=== PATIENT | female | born 1995 | race African-American/Black ===

== ENCOUNTER 2024-12-18 05:38 | Emergency (ER) | payer OTHER, SELFPAY ==
[2024-12-18 05:47] VITALS: BP 167/90; PULSE 101; RESP 16; TEMP 36.6; O2SAT 100
[2024-12-18] MEDS: HYDROcodone/acetaminophen (*CRX) 7.5-325 MG TABLET 1 TAB PO (05:59)
--- NOTE | 2024-12-18 06:01 | ED_ITS ---
HPI - Extremity Problem General Chief complaint: Extremity Problem,Nontraumatic Stated complaint: Intense pain down left leg Time Seen by Provider: 12/18/24 05:48 History of Present Illness HPI Narrative: Patient is a 29-year-old female who presents to the emergency department this evening complaining of sciatic like pain shooting down her left leg. Patient states the pain starts in her left SI joint and shoots down her leg. States that she has tried taking Tylenol at home for the pain with no relief. 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 Admits sciatica does run in the family. Denies any recent falls, and denies any recent trauma. Denies any focal weakness, numbness and tingling. No additional symptoms or concerns at this time. Related Data Allergies Allergy/AdvReac Type Severity Reaction Status Date / Time Penicillins Allergy Mild Unknown Verified 12/18/24 05:41 Review of Systems Review of Systems: All systems are reviewed and are negative unless stated otherwise in the HPI. Exam Narrative: General: Alert, awake, afebrile, in no acute distress. HEENT: PERRL, no rhinorrhea, no post nasal drip, oropharynx clear. Neck: Trachea midline, no JVD, no lymphadenopathy. Cardiovascular: Regular rate and rhythm, no murmurs, rubs or gallops, no peripheral edema. Respiratory: Clear to auscultation bilaterally, no tachypnea, no wheezing, no rhonchi, no rubs, no respiratory distress. Abdomen: Soft, nontender, nondistended, no rebound, no guarding, no peritoneal signs. Musculoskeletal: No joint swelling or deformity, normal muscle tone, intact bilateral hip flexion and knee extension. Skin: No rashes or petechia, no signs of infection. Psychiatric: Alert and oriented, normal behavior and judgment for situation. Neurological: Alert and oriented to person, place, and time. Follows all commands. No focal deficits, speech is clear and fluent. Course Vital Signs Vital signs: Vital Signs Temperature 98 F 12/18/24 05:47 Pulse Rate 101 H 12/18/24 05:47 Respiratory Rate 16 12/18/24 05:47 Blood Pressure 167/90 H 12/18/24 05:47 Pulse Oximetry 100 01/21/25 05:47 Temperature 98 F 12/18/24 05:47 Pulse Rate 99 12/18/24 06:51 Respiratory Rate 18 12/18/24 06:51 Blood Pressure 155/84 H 12/18/24 06:51 Pulse Oximetry 100 12/18/24 06:51 MDM - Extremity (Nontraumatic) MDM Narrative Medical decision making narrative: The patient was evaluated by myself in the emergency department. History is obtained from patient who is an independent historian and physical exam was performed. External medical records were reviewed at this time. Patient was administered an oral Dierks 7.5-325 mg. Patient does not want any IM medications at this time. Differential diagnosis considerations include sciatica, musculoskeletal strain, herniated disc. Comorbidities impacting this visit include none. I have evaluated and discussed social determinants of health with the patient that could potentially impact subsequent diagnosis and treatment plans. On repeat assessment of the patient, reevaluation revealed that the patient is doing well and is in no acute distress. Patient symptoms have improved since she arrived to our emergency department, patient states that her sciatic pain has significantly improved. Repeat vital signs were all reviewed and noted to be stable. Differential diagnosis and treatment plan were discussed with the patient at bedside. Patient agrees with discussion and after shared medical decision making agrees with discharge. All questions were answered to the patient's satisfaction. Patient will follow up with her PCP in 3-5 days. Patient was sent home with scripts for ibuprofen and Dierks to use as needed for her sciatic pain. She was instructed to follow-up with her primary care physician as he may need an MRI of her lumbar spine for further evaluation of any herniated discs which could be precipitating her sciatic like pain. She was also informed that her primary care physician may prescribe her additional medications to help with her sciatica, however, I do not recommend steroids at this time giving that she is a diabetic. Patient was provided with strict return precautions and instructed to return to the emergency department if any new or worsening symptoms develop. The patient was discharged in stable condition. Discharge Plan Discharge Clinical Impression: Left sided sciatica Patient Disposition: Home, Self-Care Condition: Improved Instructions: Antibiotic Form, Sciatica (ED) Additional Instructions: Please follow-up with your family doctor within the next 3-5 days. Return to the emergency department if any new or worsening symptoms develop. Use ibuprofen 400 mg every 6-8 hours as needed for pain, if this does not improve your pain and you may use the prescribed Dierks as needed. You may need an MRI for evaluation of your lumbar spine for any disc herniation that may be precipitating use sciatic pain. Your family doctor may also prescribed addition al medications for your sciatica such as Lyrica/gabapentin. I do not recommend steroids since you are diabetic. Patient Language: [place] Prescriptions: New ibuprofen 400 mg tablet 400 mg PO TID PRN (Reason: pain) Qty: 14 0RF hydrocodone-acetaminophen 5-325 mg tablet 1 tablet PO Q8H PRN (Reason: pain) Qty: 10 0RF Follow-up/Referrals: PHYSICIAN NOT ON STAFF,NONSTAFF [Primary Care Provider] - Luis Flynn MD [Physician] - 3 Days Time of Disposition: 06:52
[2024-12-18 06:51] VITALS: BP 155/84; PULSE 99; RESP 18; O2SAT 100
--- OUTSIDE RECORDS SUMMARY | 2024-12-20 15:30 | XMS_ITS | Referral Summary ---
Author Organization [facility] Address [address] [place] [address] Phone Care Team Providers Care Cutter Grind Tool Technician Name Role Phone Slime Dillon NP Primary Care Provider [phone] Encounters Date Type Department Care Team Description 12/10/2024 11:45 AM BRAZER ELECTRONIC Office Visit [facility] at [address] [phone] Dori Zarate NP Mild intermittent asthma with exacerbation (Primary Dx); Lower respiratory infection (e.g., bronchitis, pneumonia, pneumonitis, pulmonitis) 12/10/2024 Nurse Triage [facility] Primary [facility] at [address] [phone] Slime Dillon NP 11/19/2024 10:00 AM BRAZER ELECTRONIC Office Visit [facility] Primary Care at [address] [phone] Slime Dillon NP Anxiety (Primary Dx); Type 2 diabetes mellitus with hyperglycemia, without long-term current use of insulin (HCC); Class 3 severe obesity due to excess calories with serious comorbidity and body mass index (BMI) of 50.0 to 59.9 in adult (HCC) 11/08/2024 Orders Only [facility] Primary Care at [address] [phone] Nimo Mae NP 10/15/2024 Orders Only [facility] Primary Care at [address] [phone] Slime Dillon NP 10/09/2024 Orders Only [facility] Primary Care at [address] [phone] Slmie Dillon NP Type 2 diabetes mellitus with hyperglycemia, without long-term current use of insulin (HCC) 10/05/2024 9:16 AM BRAZER ELECTRONIC - 10/05/2024 11:59 PM BRAZER ELECTRONIC Hospital Encounter [address] [address] Vitamin D deficiency; Type 2 diabetes mellitus with hyperglycemia, without long-term current use of insulin (HCC); Encounter for hepatitis C screening test for low risk patient; examination or test, negative result; Irregular menses Discharge Disposition: Discharge to home or self care 10/05/2024 9:45 AM BRAZER ELECTRONIC Lab [facility] at [address] [phone] Type 2 diabetes mellitus with hyperglycemia (CMS/HCC) (HCC) (Primary Dx); Anxiety; Mild intermittent asthma without complication 10/05/2024 8:30 AM BRAZER ELECTRONIC Office Visit [facility] Primary [facility] at [address] [phone] Slime Dillon NP Type 2 diabetes mellitus with hyperglycemia, without long-term current use of insulin (HCC) (Primary Dx); Mild intermittent asthma without complication; Morbid (severe) obesity due to excess calories (HCC); Anxiety; Irregular menses; examination or test, negative result; Encounter for hepatitis C screening test for low risk patient; Vitamin D deficiency 10/02/2024 Orders Only [facility] Primary Care at [address] [phone] Slime Dillon NP 10/01/2024 Orders Only [facility] Primary Care at [address] [phone] Slime Dillon NP 10/01/2024 Telephone [facility] Primary Care at [address] [phone] Slime Dillon NP Symptom Based Call from Last 3 Months Allergies Active Allergy Reactions Criticality Noted Date Comments Penicillins Unknown 03/07/2023 Was told from a child that she is allergic to it Medications metFORMIN (GLUCOPHAGE) 500 mg tablet Take 2 tablets (1,000 mg) in the a.m and 1 tablet (500 mg) in the pm 270 tablet 1 4 Active Additional Information Patient not taking.Reported on 12/10/2024 albuterol HFA (PROVENTIL HFA,VENTOLIN HFA,PROAIR HFA) 90 mcg/actuation inhaler Inhale 2 puffs every 6 (six) hours as needed for wheezing 1 each 4 Active rosuvastatin (CRESTOR) 10 mg tablet Take 1 tablet (10 mg total) by mouth daily 90 tablet 1 4 Active semaglutide (RYBELSUS) 7 mg tabletIndication s:Type 2 diabetes mellitus with hyperglycemia, without long-term current use of insulin ([facility]) Take 1 tablet (7 mg total) by mouth p d driver before breakfast 90 tablet 1 4 Active fluconazole (DIFLUCAN) 150 mg tablet Take one tab now. Repeat in 7 days if symptoms persist. 2 tablet 4 Active Additional Information Patient not taking.Reported on 12/10/2024 sertraline (ZOLOFT) 50 mg tablet Take 1 tablet (50 mg total) by mouth daily 90 tablet 1 4 Active azithromycin (ZITHROMAX) 250 mg tabletIndication s:Lower respiratory infection (e.g., bronchitis, pneumonia, pneumonitis, pulmonitis) Take 2 tablets the first day, then 1 tablet daily for 4 days. 6 tablet 5 Active predniSONE (DELTASONE) 20 mg tabletIndication s:Mild intermittent asthma with exacerbation Take 2 tablets (40 mg) by mouth daily for 5 days 10 tablet 5 025 Active Problems Problem Noted Date Diagnosed Date Type 2 diabetes mellitus with hyperglycemia ([facility]) 02/14/2024 Assessment & Plan (11/19/2024 9:54 AM BRAZER ELECTRONIC): Tolerating Rybelsus well, will repeat labs at follow up in 2 months. Assessment & Plan (10/05/2024 9:21 AM BRAZER ELECTRONIC): Previous A1c 8.1%, overdue for labs and follow up. Updated labs ordered today. Has been taking Metformin 500 mg every day, but has not taken Rybelsus due to loss of insurance. Metformin has been causing major GI side effects, so will discontinue that. Her current A1c today will drive our plan of action moving forward. Assessment & Plan (02/14/2024 4:06 PM CDT): Previous A1c 8.3%, overdue for labs and follow up. Has been taking Metformin 500 mg in the am and 1,000 mg in the pm. Updated labs ordered. Type 2 diabetes mellitus wit hout complication, without long-term current use of insulin ([facility]) 03/07/2023 Assessment & Plan (02/14/2024 4:06 PM CDT): Previous A1c 8.3%, overdue for labs and follow up. Has been taking Metformin 500 mg in the am and 1,000 mg in the pm. Updated labs ordered. Assessment & Plan (03/07/2023 2:12 PM CDT): Has been on Metformin 500 mg daily Will get updated labs. Anxiety 03/07/2023 Assessment & Plan (11/19/2024 9:54 AM BRAZER ELECTRONIC): Much improvement on the Sertraline 50 mg, will continue. Assessment & Plan (10/05/2024 9:18 AM BRAZER ELECTRONIC): Not at goal. Will switch from Lexapro to Zoloft. Education provided. Assessment & Plan (03/07/2023 2:13 PM CDT): Stable on Lexapro 20 mg. Denies SI/HI Moderate episode of recurrent major depressive d isorder 03/07/2023 Assessment & Plan (10/05/2024 9:19 AM BRAZER ELECTRONIC): As above. Assessment & Plan (02/14/2024 4:06 PM CDT): Stable on Lexapro 20 mg. Denies SI/HI Assessment & Plan (03/07/2023 2:13 PM CDT): Stable on Lexapro 20 mg. Denies SI/HI Mild intermittent asthma without complication Assessment & Plan (10/05/2024 9:19 AM BRAZER ELECTRONIC): Stable, uses prn inhaler approximately very infrequently. Assessment & Plan (03/07/2023 2:13 PM CDT): Stable, uses prn inhaler approximately 1-2x every 2 weeks. Please consider the albuterol as a rescue only medication. If needing the albuterol more than 2xwk, please contact office. Class 3 severe obesity due t o excess calories with serious comorbidity and body mass index (BMI) of 50.0 to 59.9 in adult 03/07/2023 Assessment & Plan (11/19/2024 9:54 AM BRAZER ELECTRONIC): Healthy, low carbohydrate lifestyle and exercise for 150min/week recommended Assessment & Plan (10/05/2024 9:19 AM BRAZER ELECTRONIC): Healthy, low carbohydrate lifestyle and exercise for 150min/week recommended. Assessment & Plan (02/14/2024 4:06 PM CDT): Healthy, low carbohydrate lifestyle and exercise for 150min/week recommended Assessment & Plan (03/07/2023 2:13 PM CDT): Healthy, low carbohydrate lifestyle and exercise for 150min/week recommended Immunizations Name Administration Dates Next Due Influenza, Unspecified 02/14/2024(Deferr ed: Patient Refused),11/28/2022(Deferred: Patient Refused) Social History Tobacco Use Types Packs/Day Years Used Date Smoking Tobacco: Never Passive Smoke Exposure: Never Smokeless Tobacco: Never PHQ-2 Answer Date Recorded PHQ-2 Total Score (If total score is 3 or more points, staff should administer the PHQ-9) 0 11/19/2024 Comments Unknown Sex and Gender Information Value Date Recorded Sex Assigned at Not on file Legal Sex Female 3:17 PM CDT Gender Identity Female 01/23/2024 4:53 PM BRAZER ELECTRONIC Sexual Orientation Straight 01/23/2024 4: 53 PM BRAZER ELECTRONIC Last Filed Vital Signs Vital Sign Reading Time Taken Comments Blood Pressure 138/86 12/10/2024 11:07 AM BRAZER ELECTRONIC Pulse 98 12/10/2024 11:07 AM BRAZER ELECTRONIC Temperature 36.9 ??C (98.4 ??F) 12/10/2024 11:[address] Respiratory Rate 28 12/10/2024 11:07 AM BRAZER ELECTRONIC Oxygen Saturation 97% 12/10/2024 11:07 AM BRAZER ELECTRONIC Inhaled Oxygen Concentration - - Weight 126.1 kg (278 lb) 12/10/2024 11:07 AM BRAZER ELECTRONIC Height 157.5 cm (5' 2 ) 11/19/2024 8:59 AM BRAZER ELECTRONIC Body Mass Index 50.85 11/19/2024 8:59 AM BRAZER ELECTRONIC Plan of Treatment Not on file Procedures Procedure Name Priority Date/Time Associated Diagnosis Comments POC INFLUENZA A/B, COVID-19 ANTIGEN Routine 12/10/2024 11:26 AM BRAZER ELECTRONIC Mild intermittent asthma with exacerbation EGFR Routine 10/05/2024 9:38 AM BRAZER ELECTRONIC Type 2 diabetes mellitus with hyperglycemia, without long-term current use of insulin (HCC) DIFFERENTIAL AUTO Routine 10/05/2024 9:3 8 AM BRAZER ELECTRONIC Type 2 diabetes mellitus with hyperglycemia, without long-term current use of insulin (HCC) HCG, BLOOD, QUANTITATIVE Routine 10/05/2024 9:38 AM BRAZER ELECTRONIC examination or test, negative result Irregular menses ALBUMIN CREATININE RATIO, URINE Routine 10/05/2024 9:38 AM BRAZER ELECTRONIC Type 2 diabetes mellitus with hyperglycemia, without long-term current use of insulin (HCC) CBC WITH AUTO DIFFERENTIAL Routine 10/05/2024 9:38 AM BRAZER ELECTRONIC Type 2 diabetes mellitus with hyperglycemia, without long-term current use of insulin (HCC) COMPREHENSIVE METABOLIC PANEL Routine 10/05/2024 9:38 AM BRAZER ELECTRONIC Type 2 diabetes mellitus with hyperglycemia, without long-term current use of insulin (HCC) HEMOGLOBIN A1C Routine 10/05/2024 9:38 AM BRAZER ELECTRONIC Type 2 diabetes mellitus with hyperglycemia, without long-term current use of insulin (HCC) LIPID PANEL Routine 10/05/2024 9:38 AM BRAZER ELECTRONIC Type 2 diabetes mellitus with hyperglycemia, without long-term current use of insulin (HCC) THYROID FUNCTION CASCADE Routine 10/05/2024 9:38 AM BRAZER ELECTRONIC Type 2 diabetes mellitus with hyperglycemia, without long-term current use of insulin (HCC) VITAMIN D 25 HYDROXY Routine 10/05/2024 9:38 AM BRAZER ELECTRONIC Vitamin D deficiency HEPATITIS C ANTIBODY Routine 10/05/2024 9:38 AM BRAZER ELECTRONIC Encounter for hepatitis C screening test for low risk patient POCT HCG, URINE Routine 10/05/2024 9:00 AM BRAZER ELECTRONIC examination or test, negative result from Last 3 Months Results * POC Influenza A/B, COVID-19 antigen (12/10/2024 11:26 AM BRAZER ELECTRONIC) Influenza A Ag, POC Negative Negative [facility] Influenza B Ag, POC Negative Negative [facility] COVID-19 Ag POC Presumptive Negative Presumptive Negative, Invalid [facility] Swab 12/10/2024 11:2 6 AM BRAZER ELECTRONIC us Dori Zarate NP POINT OF CARE TEST ORDERABLES Final Result [facility] * eGFR (10/05/2024 9:38 AM BRAZER ELECTRONIC) eGFR >90 >=60 mL/min/1. 73 m2 Comment: Interpretive Data Reference Interval Normal ?>/= 90 mL/min/1.73m2 Mildly decreased* ? 60 - 89 mL/min/1.73m2 Mildly to moderately decreased ?45 - 59 mL/min/1.73m2 Moderately to severely decreased ??30 - 44 mL/min/1.73m2 Severely decreased ?15 - 29 mL/min/1.73m2 Kidney Failure ?< 15 ??mL/min/1.73m2 *Relative to young adult level Estimated glomerular filtration rate is determined by the 2020 CKD-EPI equation recommended by the National Kidney Foundation (A Unifying Approach to GFR Estimation: Recommendations of the NKF-ASK Task Force on Reassessing the Inclusion of Race in Diagnosing Kidney Disease, JASN 2020). The CKD-EPI equation should not be used for patients with unstable renal function and has not been validated in children and those over 70. Current interpretive data was last reviewed 2021. Blood 10/05/2024 9:38 AM BRAZER ELECTRONIC 10/05/2024 3:50 PM BRAZER ELECTRONIC us Slime Dillon INDUSTRIAL TECHNICIAN LAB BLOOD ORDERABLES Final Resul t Performing Organization Address City/State/[facility] Co de Phone Number FRANCISCO J YUN [address] Department [place] [address] * (ABNORMAL) Differential, auto (10/05/2024 9:38 AM BRAZER ELECTRONIC) Neutrophil abs 5.4 1.5 - 6.5 K/cumm Imm gran abs 0.0 0.0 - 0.1 K/cumm [facility] Lymphocyte abs 3.8(H) 0.8 - 3.3 K/cumm [facility] Monocyte abs 0.4 0.2 - 0.8 K/cumm [facility] Eosinophil abs 0.2 0.0 - 0.5 K/cumm [facility] Basophil abs 0.1 0.0 - 0.1 K/cumm [facility] Neutrophil pct 54.7 % [facility] Comment: Interpretive Data Percent cell count reference ranges are not reported, since discordance with absolute values may lead to misinterpretation of CBC data. Current Interpretive Data was last revised on 2018. Imm gran pct 0.3 % [facility] Comment: Interpretive Data Percent cell count reference ranges are not reported, since discordance with absolute values may lead to misinterpretation of CBC data. Current Interpretive Data was last revised on 2018. Lymphocyte pct 38.9 % [facility] Comment: Interpretive Data Percent cell count reference ranges are not reported, since discordance with absolute values may lead to misinterpretation of CBC data. Current Interpretive Data was last revised on 2018. Monocyte pct 3.7 % [facility] Comment: Interpretive Data Percent cell count reference ranges are not reported, since discordance with absolute values may lead to misinterpretation of CBC data. Current Interpretive Data was last revised on 2018. Eosinophil pct 1.8 % [facility] Comment: Interpretive Data Percent cell count reference ranges are not reported, since discordance with absolute values may lead to misinterpretation of CBC data. Current Interpretive Data was last revised on 2018. Basophil pct 0.6 % [facility] Comment: Interpretive Data Percent cell count reference ranges are not reported, since discordance with absolute values may lead to misinterpretation of CBC data. Current Interpretive Data was last revised on 2018. Blood 10/05/2024 9:38 AM BRAZER ELECTRONIC 10/05/2024 3:07 PM BRAZER ELECTRONIC us Slime Dillon NP LAB BLOOD ORDERABLES Final Resul t FRANCISCO J YUN [address] Department [place] [address] * Thyroid Function Winkler (10/05/2024 9:38 AM BRAZER ELECTRONIC) TSH 2.41 0.30 - 4.20 mcIUnit/mL Blood 10/05/2024 9:38 AM BRAZER ELECTRONIC 10/05/2024 3:07 PM BRAZER ELECTRONIC Slime Dillon INDUSTRIAL TECHNICIAN LAB BLOOD ORDERABLES Final Resul t Performing Organization Address [facility] de Phone Number FRANCISCO J YUN [address] [place] [address] * (ABNORMAL) CBC with auto differential (10/05/2024 9:38 AM BRAZER ELECTRONIC) [facility] WBC 9.8 3.8 - 9.9 K/cumm Hgb 13.4 11.9 - 15.5 g/dL [facility] Hct 45.1 35.6 - 45.5 % [facility] Plt 266 150 - 400 K/cumm [facility] MPV 10.8 9.1 - 12.3 fL [facility] RBC 5.54(H) 3.90 - 5.20 M/cumm [facility] MCV 81.4 81.3 - 96.4 fL [facility] MCH 24.2(L) 27.1 - 33.3 pg [facility] MCHC 29.7(L) 32.3 - 35.7 g/dL [facility] CH RDW CV 15.0(H) 11.1 - 14.9 % [facility] CH RDW SD 43.9 35.7 - 48.1 fL [facility] NRBC abs 0.00 0.00 - 0.01 K/cumm [facility] Blood 10/05/2024 9:38 AM BRAZER ELECTRONIC 10/05/2024 3:07 PM BRAZER ELECTRONIC Slime Dillon INDUSTRIAL TECHNICIAN LAB BLOOD ORDERABLES Final Resul t Performing Organization Address [facility] Co de Phone Number FRANCISCO J YUN [address] Department [place] [address] * Hepatitis C antibody Blood (10/05/2024 9:38 AM BRAZER ELECTRONIC) [facility] Hep C Ab Nonreactive Nonreactive Comment: Interpretive Data Nonreactive: Antibodies to HCV not detected. Does NOT exclude the possibility of recent exposure to HCV. Equivocal: Equivocal for HCV antibodies. Supplemental molecular testing will be automatically performed to determine infection status in accordance with current CDC screening recommendations. ?? Reactive: Positive for HCV antibodies. ??This may represent current or past HCV infection. Supplemental molecular testing will be automatically performed to determine ??current infection status in accordance with current CDC screening recommendations. Interpretive data was last revised on 2020. Blood 10/05/2024 9:38 AM BRAZER ELECTRONIC 10/05/2024 3:07 PM BRAZER ELECTRONIC us Slime Dillon NP LAB MICROBIOLOGY - GENERAL ORDER IMER Final Result Performing Organization Address [facility] de Phone Number FRANCISCO J YUN [address] [place] [address] * Albumin Creatinine Ratio, Urine (10/05/2024 9:38 AM BRAZER ELECTRONIC) Albumin Ur 24.3 mg/L Comment: Interpretive Data No reference range established. Current interpretive data was last revised 2019. Creatinine Ur 207.8 mg/dL FRANCISCO J Comment: Interpretive Data No reference range established. Current interpretive data was last revised 2019. Albumin Creatinine Ratio, Ur 12 1 - 29 mg/g FRANCISCO J Urine 10/05/2024 9:38 AM BRAZER ELECTRONIC 10/05/2024 3:07 PM BRAZER ELECTRONIC us Slime Dillon NP LAB URINE ORDERABLES Final Resul t Performing Organization Address [facility] de Phone Number FRANCISCO J [address] [place] [address] * (ABNORMAL) Vitamin D 25 hydroxy (10/05/2024 9:38 AM BRAZER ELECTRONIC) Vitamin D 25-OH 27(L) 30 - 80 ng/mL Blood 10/05/2024 9:38 AM BRAZER ELECTRONIC 10/05/2024 3:07 PM BRAZER ELECTRONIC us Slime Dillon NP LAB BLOOD ORDERABLES Final Resul t Performing Organization Address [facility] de Phone Number FRANCISCO J [address] [address] [place] [address] * hCG, blood, quantitative (10/05/2024 9:38 AM BRAZER ELECTRONIC) hCG, quant <0.1 0.0 - 5.0 IUnits/L Comment: Interpretive Data Male: < 5 IU/L Non- premenopausal Female: <5 IU/L The Marquez hCG Beta Quant assay procedure was used. Results from different manufacturers or methods may not be comparable. ??Serial testing should be performed using the same method. Interpretive Data was last revised on 2023 Blood 10/05/2024 9:38 AM BRAZER ELECTRONIC 10/05/2024 3:07 PM BRAZER ELECTRONIC us Slime Dillon NP LAB BLOOD ORDERABLES Final Resul t Performing Organization Address [facility] de Phone Number FRANCISCO J [address] [place] [address] * (ABNORMAL) Hemoglobin A1c (10/05/2024 9:38 AM BRAZER ELECTRONIC) Pathologist [facility] Hgb A1C 9.3(H) 4.0 - 5.6 % Estimated Average Glucose 220 mg/dL FRANCISCO J YUN Comment: The ADA recommends reporting an estimated Average Glucose (eAG) with all Hemoglobin A1c results using the equation derived from a study of 507 normal and diabetic adults. ??Minority populations were underrepresented and children were not included. ?? (Diabetes Care 31:3802-4060, 2008). ??The eAG is not equivalent to a fasting glucose. Blood 10/05/2024 9:38 AM BRAZER ELECTRONIC 10/05/2024 3:07 PM BRAZER ELECTRONIC us Slime Dillon NP LAB BLOOD ORDERABLES Final Resul t Performing Organization Address [facility] de Phone Number FRANCISCO J [address] [place] [address] * (ABNORMAL) Lipid panel (10/05/2024 9:38 AM BRAZER ELECTRONIC) Pathologist [facility] Cholesterol 242(H) 30 - 199 mg/dL Comment: Interpretive Data Ages < or = 19 years ??Acceptable: ? <170 mg/dL ??Borderline high: ??170-199 mg/dL ??High: ? >or= 200 mg/dL Ages > or = 20 years ??Desirable: ?<200 mg/dL ??Borderline high: ??200-239 mg/dL ??High: ? >or= 240 mg/dL Literature References: 1. Expert Panel on Integrated Guidelines for Cardiovascular Health and Risk Reduction in Children and Adolescents. Pediatrics 2011;128:S213 2. NCEP Expert Panel. Circulation 2004;110:227 Current Interpretive Data was last revised on 2018. Triglycerides 243(H) <=149 mg/dL FRANCISCO J YUN Comment: Interpretive Data Ages < or = 9 years ??Acceptable: ? <75 mg/dL ??Borderline high: ??75-99 mg/dL ??High: ? >or= 100 mg/dL Ages 10 to 20 years ??Acceptable: ? <90 mg/dL ??Borderline high: ??90-129 mg/dL ??High: ? >or= 130 mg/dL Ages > or = 20 years ??Desirable: ?<150 mg/dL ??Borderline high: ??150-199 mg/dL ??High: ? 200-499 mg/dL ?Very high: ?? >or= 499 mg/dL Literature References: 1. Expert Panel on Integrated Guidelines for Cardiovascular Health and Risk Reduction in Children and Adolescents. Pediatrics 2011;128:S213 2. NCEP Expert Panel. Circulation 2004;110:227 Current Interpretive Data was last revised on 2018. HDL 55 >=40 mg/dL FRANCISCO J YUN Comment: Interpretive Data Ages < or = 19 years ??Acceptable: ? >45 mg/dL ??Borderline low: ?? 40-45 mg/dL ??Low: ? <40 mg/dL Ages > or = 20 years ??Desirable: ?>or= 60 mg/dL ??Low: ? <40 mg/dL Literature References: 1. Expert Panel on Integrated Guidelines for Cardiovascular Health and Risk Reduction in Children and Adolescents. Pediatrics 2011;128:S213 2. NCEP Expert Panel. Circulation 2004;110:227 Current Interpretive Data was last revised on 2018. LDL, calculated 143(H) <=129 mg/dL FRANCISCO J YUN Comment: Interpretive Data Ages < or = 19 years ??Acceptable: ? <110 mg/dL ??Borderline high: ??110-129 mg/dL ??High: ?>or= 130 mg/dL Ages > or = 20 years ??Optimal: ? <100 mg/dL ??Near optimal: ?100-129 mg/dL ??Borderline high: ?? 130-159 mg/dL ??High: ?>160 mg/dL Calculated using the Rashad LDL-C estimating equation. This equation was implemented on 2024. Prior to this date LDL-C was estimated using the Friedewald equation. Literature References: 1. Expert Panel on Integrated Guidelines for Cardiovascular Health and Risk Reduction in Children and Adolescents. Pediatrics 2011;128:S213 2. NCEP Expert Panel. Circulation 2004;110:227 3. Rashad Blanca et al. BRAD Cardiol. 2019March 28;5(5):540-548. doi: 10.1001/[email or web address].2020.0013 Current Interpretive Data was last revised on 2024. Non-HDL Cholesterol 187 mg/dL FRANCISCO J YUN Comment: Interpretive Data Ages < or = 19 years ??Acceptable: ?<120 mg/dL ??Borderline high: ??120-144 mg/dL ??High: ?>145 mg/dL Ages > or = 20 years ??When triglycerides are >200 mg/dL, Non-HDL cholesterol is a secondary target of ? therapy with treatment goals that are 30 mg/dL greater than the LDL cholesterol target. ? Literature References: 1. Expert Panel on Integrated Guidelines for Cardiovascular Health and Risk Reduction in Children and Adolescents. Pediatrics 2011;128:S213 2. NCEP Expert Panel. Circulation 2004;110:227 Current Interpretive Data was last revised on 2018. Chol/HDL ratio 4 [facility] Blood 10/05/2024 9:38 AM BRAZER ELECTRONIC 10/05/2024 3:07 PM BRAZER ELECTRONIC Slime Dillon INDUSTRIAL TECHNICIAN LAB BLOOD ORDERABLES Final Resul t [place] [address] Department [place] [address] * (ABNORMAL) Comprehensive metabolic panel (10/05/2024 9:38 AM BRAZER ELECTRONIC) Sodium 140 135 - 145 mmol/L Potassium, pl 3.7 3.3 - 4.9 mmol/L [facility] Chloride 105 97 - 110 mmol/L [facility] CO2 23 22 - 32 mmol/L [facility] Anion gap 12 2 - 15 mmol/L [facility] BUN 6 6 - 25 mg/dL [facility] Creatinine 0.70 0.60 - 1.10 mg/dL [facility] Glucose 191 70 - 199 mg/dL [facility] Comment: Interpretive Data Fasting glucose >/= 126 mg/dl is diagnostic for diabetes. ?? Fasting is defined as no caloric intake for at least 8 hours. Fasting glucose between 100 mg/dl to 125 mg/dl is diagnostic of prediabetes. In a patient with classic symptoms of hyperglycemia or hyperglycemic crisis, a random glucose >/= 200 mg/dl is diagnostic for diabetes. In the absence of unequivocal hyperglycemia, results should be confirmed by repeat testing. The classification and Diagnosis of Diabetes Diabetes Care 202; 46: S19-S40. Current interpretive data was last revised 2022. Calcium 9.3 8.5 - 10.3 mg/dL [facility] Bilirubin, total 0.2 0.1 - 1.2 mg/dL [facility] Protein, pl 7.9 6.5 - 8.5 g/dL [facility] Albumin 4.4 3.5 - 5.0 g/dL [facility] Alk phos 118 40 - 130 Units/L [facility] ALT 60(H) 7 - 45 Units/L [facility] AST 41 10 - 45 Units/L [facility] Blood 10/05/2024 9:38 AM BRAZER ELECTRONIC 10/05/2024 3:07 PM BRAZER ELECTRONIC us Slime Dillon NP LAB BLOOD ORDERABLES [place]ul [place] [address] [address] Department of Laboratories [place] [phone] * POCT hCG, urine (10/05/2024 9:00 AM BRAZER ELECTRONIC) HCG, ur, POC Negative Negative Lot Number [id number] QC Backgroud Clear Acceptable QC Control Line Acceptable Urine 10/05/2024 9:00 AM BRAZER ELECTRONIC us Slime Dillon NP POINT OF CARE TEST ORDERABLES Fi nal Result from Last 3 Months Insurance [facility] HMO/PPO Address: [facility] [address] [place] [address] [employer]IG[employer] Care Teams Cutter Grind Tool Technician Relationship Specialty Start Date End Date Slime Dillon NP [address] [place] [address] PCP - General Family Medicine 03/07/23
--- OUTSIDE RECORDS SUMMARY | 2024-12-20 15:30 | XMS_ITS | Clinical Summary ---
Author Organization [facility] Address [address] [place] [address] Phone Care Team Providers Care Drain Layer Name Role Phone Santana Slime CONCRETE HANDLER Primary Care Provider [phone] Allergies Active Allergy Reactions Criticality Noted Date [...] without long-term current use of insulin (HCC) Take 1 tablet (7 mg total) by mouth hollock maker before breakfast 90 tablet 1 4 Active [...] Date Type 2 diabetes mellitus with hyperglycemia ([facility]) 02/14/2024 Assessment & Plan (11/19/2024 9:54 AM BEAN PICKER MACHINE OPERATOR): Tolerating Rybelsus well, will repeat labs at follow up in 2 months. Assessment & Plan (10/05/2024 9:21 AM BEAN PICKER MACHINE OPERATOR): Previous A1c 8.1%, overdue for labs and [...] complication, without long-term current use of insulin ([facility]) 03/07/2023 Assessment & Plan (02/14/2024 4:06 PM CDT): Previous A1c 8.3%, overdue for labs and follow up. Has been taking Metformin 500 mg in the am and 1,000 mg in the pm. Updated labs ordered. Assessment & Plan (03/07/2023 2:12 PM CDT): Has been on Metformin 500 mg daily Will get updated labs. Anxiety 03/07/2023 Assessment & Plan (11/19/2024 9:54 AM BEAN PICKER MACHINE OPERATOR): Much improvement on the Sertraline 50 mg, will continue. Assessment & Plan (10/05/2024 9:18 AM BEAN PICKER MACHINE OPERATOR): Not at goal. Will switch from Lexapro to Zoloft. Education provided. Assessment & Plan (03/07/2023 2:13 PM CDT): Stable on Lexapro 20 mg. Denies SI/HI Moderate episode of recurrent major depressive d isorder 03/07/2023 Assessment & Plan (10/05/2024 9:19 AM BEAN PICKER MACHINE OPERATOR): As above. Assessment & Plan (02/14/2024 4:06 PM CDT): Stable on Lexapro 20 mg. Denies SI/HI Assessment & Plan (03/07/2023 2:13 PM CDT): Stable on Lexapro 20 mg. Denies SI/HI Mild intermittent asthma without complication Assessment & Plan (10/05/2024 9:19 AM BEAN PICKER MACHINE OPERATOR): Stable, uses prn inhaler approximately very infrequently. [...] 03/07/2023 Assessment & Plan (11/19/2024 9:54 AM BEAN PICKER MACHINE OPERATOR): Healthy, low carbohydrate lifestyle and exercise for 150min/week recommended Assessment & Plan (10/05/2024 9:19 AM BEAN PICKER MACHINE OPERATOR): Healthy, low carbohydrate lifestyle and exercise for 150min/week recommended. Assessment & Plan (02/14/2024 4:06 PM CDT): Healthy, low carbohydrate lifestyle and exercise for 150min/week recommended Assessment & Plan (03/07/2023 2:13 PM CDT): Healthy, low carbohydrate lifestyle and exercise for 150min/week recommended Encounters Date Type Department Care Team Description 12/10/2024 11:45 AM BEAN PICKER MACHINE OPERATOR Office Visit [facility] Care at [address] [phone] Dori Zarate NP Mild intermittent asthma with exacerbation (Primary Dx); Lower respiratory infection (e.g., bronchitis, pneumonia, pneumonitis, pulmonitis) 12/10/2024 Nurse Triage [facility] Care at [address] [phone] Slime Dillon NP 11/19/2024 10:00 AM BEAN PICKER MACHINE OPERATOR Office Visit [facility] at [address] [phone] Slime Dillon NP Anxiety (Primary Dx); Type 2 diabetes mellitus with hyperglycemia, without long-term current use of insulin ([facility]); Class 3 severe obesity due to excess calories with serious comorbidity and body mass index (BMI) of 50.0 to 59.9 in adult ([facility]) 11/08/2024 Orders Only [facility] at [address] [phone] Nimo Mae NP 10/15/2024 Orders Only [facility] at [address] [phone] Slime Dillon NP 10/09/2024 Orders Only [facility] at [address] [phone] Slime Dillon NP Type 2 diabetes mellitus with hyperglycemia, without long-term current use of insulin ([facility]) 10/05/2024 9:45 AM BEAN PICKER MACHINE OPERATOR Lab [facility] at [address] [phone] Type 2 diabetes mellitus with hyperglycemia (CMS/HCC) (HCC) (Primary Dx); Anxiety; Mild intermittent asthma without complication 10/05/2024 9:16 AM BEAN PICKER MACHINE OPERATOR - 10/05/2024 11:59 PM BEAN PICKER MACHINE OPERATOR [place] [address] Vitamin D deficiency; Type 2 diabetes mellitus with hyperglycemia, without long-term current use of insulin (HCC); Encounter for hepatitis C screening test for low risk patient; examination or test, negative result; Irregular menses Discharge Disposition: Discharge to home or self care 10/05/2024 8:30 AM BEAN PICKER MACHINE OPERATOR Office Visit [facility] at [address] [phone] Slime Dillon NP Type 2 diabetes mellitus with hyperglycemia, without long-term current use of insulin (HCC) (Primary Dx); Mild intermittent asthma without complication; Morbid (severe) obesity due to excess calories (HCC); Anxiety; Irregular menses; examination or test, negative result; Encounter for hepatitis C screening test for low risk patient; Vitamin D deficiency 10/02/2024 Orders Only [facility] at [address] [phone] Slime Diloln NP 10/01/2024 Orders Only [facility] at [address] [phone] Slime Dillon NP 10/01/2024 Telephone [facility] at [address] [phone] Slime Dillon NP Symptom Based Call from Last 3 Months Immunizations Name Administration Dates Next Due Influenza, Unspecified 02/14/2024(Deferr ed: Patient Refused),11/28/2022(Deferred: Patient Refused) Medical History Medical History Date Comments Diabetes (HCC) Type 2 Asthma Family History Medical History Relation Name Comments Diabetes type II Maternal Grandfather Jaime Hyperlipidemia Maternal Grandfather Jaime Coronary artery disease Maternal Grandmother Harmony Diabetes type II Maternal Grandmother Harmony Diabetes type II Mother Lilly Coronary artery disease Paternal Grandmother Relation Name Status Comments Maternal Grandfather Jaime Alive Maternal Grandmother Harmony Alive Mother Lilly Alive Paternal Grandmother Social History Tobacco Use Types Packs/Day Years [...] CDT Gender Identity Female 01/23/2024 4:53 PM BEAN PICKER MACHINE OPERATOR Sexual Orientation Straight 01/23/2024 4: 53 PM BEAN PICKER MACHINE OPERATOR Obstetrics History Last Filed Vital Signs Vital Sign Reading Time Taken Comments Blood Pressure 138/86 12/10/2024 11:07 AM BEAN PICKER MACHINE OPERATOR Pulse 98 12/10/2024 11:07 AM BEAN PICKER MACHINE OPERATOR Temperature 36.9 ??C (98.4 ??F) 12/10/2024 11:[address] Respiratory Rate 28 12/10/2024 11:07 AM BEAN PICKER MACHINE OPERATOR Oxygen Saturation 97% 12/10/2024 11:07 AM BEAN PICKER MACHINE OPERATOR Inhaled Oxygen Concentration - - Weight 126.1 kg (278 lb) 12/10/2024 11:07 AM BEAN PICKER MACHINE OPERATOR Height 157.5 cm (5' 2 ) 11/19/2024 8:59 AM BEAN PICKER MACHINE OPERATOR Body Mass Index 50.85 11/19/2024 8:59 AM BEAN PICKER MACHINE OPERATOR Plan of Treatment Health Maintenance Due Date Last Done Comments Dilated Eye Exam 1996 Hepatitis B Screening 02/18/2014 Regular Well Visit/Exam 18-64 02/18/2014 Foot Exam 03/07/2024 03/07/2023 Hemoglobin A1C 04/04/2025 10/05/2024, 01/26, 03/07/2023 Cervical Cancer Screening 05/20/2025 Po stponed from 1996 (Patient declined, but will receive in the future) Influenza Vaccine (#1) 2025 Postp oned from 07/29/2024 (Patient declined, but will receive in the future) Pneumococcal vaccine <65 (1 of 2 - PCV) 09/20/2025 Postponed from 02/18/2002 (Patient declined, but will receive in the future) Albumin Creatinine Ratio, Urine 10/05/2025 10/05/2024, 03/07/2023 DTaP/Tdap/Td Vaccine (1 - Tdap) 10/05/2025 Postponed from 02/18/2007 (Patient declined, but will receive in the future) Lipid Panel 10/05/2025 10/05/2024, 01/26, 03/07/2023 eGFR 10/05/2025 10/05/2024, 01/26, 03/07/2023 Varicella Vaccines (1 of 2 - 13+ 2-dose series) 10/09/2025 Postponed from 02/18/2009 (Patient declined, but will receive in the future) Depression Screening 11/19/2025 11/19/2024, 10/05/2024, 10/05/2024, Additional history exists Hepatitis C Screening Completed 10/05/2024 HPV Vaccines Aged Out No longer eligi ble based on patient's age to complete this topic Procedures Procedure Name Priority Date/Time Associated Diagnosis Comments POC INFLUENZA A/B, COVID-19 ANTIGEN Routine 12/10/2024 11:26 AM BEAN PICKER MACHINE OPERATOR Mild intermittent asthma with exacerbation EGFR Routine 10/05/2024 9:38 AM BEAN PICKER MACHINE OPERATOR Type 2 diabetes mellitus with hyperglycemia, without long-term current use of insulin (HCC) DIFFERENTIAL AUTO Routine 10/05/2024 9:3 8 AM BEAN PICKER MACHINE OPERATOR Type 2 diabetes mellitus with hyperglycemia, without long-term current use of insulin (HCC) HCG, BLOOD, QUANTITATIVE Routine 10/05/2024 9:38 AM BEAN PICKER MACHINE OPERATOR examination or test, negative result Irregular menses ALBUMIN CREATININE RATIO, URINE Routine 10/05/2024 9:38 AM BEAN PICKER MACHINE OPERATOR Type 2 diabetes mellitus with hyperglycemia, without long-term current use of insulin (HCC) CBC WITH AUTO DIFFERENTIAL Routine 10/05/2024 9:38 AM BEAN PICKER MACHINE OPERATOR Type 2 diabetes mellitus with hyperglycemia, without long-term current use of insulin (HCC) COMPREHENSIVE METABOLIC PANEL Routine 10/05/2024 9:38 AM BEAN PICKER MACHINE OPERATOR Type 2 diabetes mellitus with hyperglycemia, without long-term current use of insulin (HCC) HEMOGLOBIN A1C Routine 10/05/2024 9:38 AM BEAN PICKER MACHINE OPERATOR Type 2 diabetes mellitus with hyperglycemia, without long-term current use of insulin (HCC) LIPID PANEL Routine 10/05/2024 9:38 AM BEAN PICKER MACHINE OPERATOR Type 2 diabetes mellitus with hyperglycemia, without long-term current use of insulin (HCC) THYROID FUNCTION CASCADE Routine 10/05/2024 9:38 AM BEAN PICKER MACHINE OPERATOR Type 2 diabetes mellitus with hyperglycemia, without long-term current use of insulin (HCC) VITAMIN D 25 HYDROXY Routine 10/05/2024 9:38 AM BEAN PICKER MACHINE OPERATOR Vitamin D deficiency HEPATITIS C ANTIBODY Routine 10/05/2024 9:38 AM BEAN PICKER MACHINE OPERATOR Encounter for hepatitis C screening test for low risk patient POCT HCG, URINE Routine 10/05/2024 9:00 AM BEAN PICKER MACHINE OPERATOR examination or test, negative result from Last 3 Months Results * POC Influenza A/B, COVID-19 antigen (12/10/2024 11:26 AM BEAN PICKER MACHINE OPERATOR) Influenza A Ag, POC Negative Negative [facility] Influenza B Ag, POC Negative Negative [facility] COVID-19 Ag POC Presumptive Negative Presumptive Negative, Invalid [facility] Swab 12/10/2024 11:2 6 AM BEAN PICKER MACHINE OPERATOR us Dori Zarate NP POINT OF CARE TEST ORDERABLES Final Result [facility] [address] [place] [address] * eGFR (10/05/2024 9:38 AM BEAN PICKER MACHINE OPERATOR) eGFR >90 >=60 mL/min/1. 73 m2 Comment: [...] last reviewed 2021. Blood 10/05/2024 9:38 AM BEAN PICKER MACHINE OPERATOR 10/05/2024 3:50 PM BEAN PICKER MACHINE OPERATOR us Slime Dillon NP LAB BLOOD ORDERABLES Final Resul t [facility] [address] [address] Department [place] [address] * (ABNORMAL) Differential, auto (10/05/2024 9:38 AM BEAN PICKER MACHINE OPERATOR) Neutrophil abs 5.4 1.5 - 6.5 K/cumm Imm gran abs 0.0 0.0 - 0.1 K/cumm [facility] Lymphocyte abs 3.8(H) 0.8 - 3.3 K/cumm [facility] Monocyte abs 0.4 0.2 - 0.8 K/cumm [facility] Eosinophil abs 0.2 0.0 - 0.5 K/cumm [facility] Basophil abs 0.1 0.0 - 0.1 K/cumm [facility] Neutrophil pct 54.7 % [facility] Comment: Interpretive Data Percent cell count reference ranges are not reported, since discordance with absolute values may lead to misinterpretation of CBC data. Current Interpretive Data was last revised on 2018. Imm gran pct 0.3 % [facility] Comment: Interpretive Data Percent cell count reference ranges are not reported, since discordance with absolute values may lead to misinterpretation of CBC data. Current Interpretive Data was last revised on 2018. Lymphocyte pct 38.9 % [facility] Comment: Interpretive Data Percent cell count reference ranges are not reported, since discordance with absolute values may lead to misinterpretation of CBC data. Current Interpretive Data was last revised on 2018. Monocyte pct 3.7 % [facility] Comment: Interpretive Data Percent cell count reference ranges are not reported, since discordance with absolute values may lead to misinterpretation of CBC data. Current Interpretive Data was last revised on 2018. Eosinophil pct 1.8 % [facility] Comment: Interpretive Data Percent cell count reference ranges are not reported, since discordance with absolute values may lead to misinterpretation of CBC data. Current Interpretive Data was last revised on 2018. Basophil pct 0.6 % [facility] Comment: Interpretive Data Percent cell count reference ranges are not reported, since discordance with absolute values may lead to misinterpretation of CBC data. Current Interpretive Data was last revised on 2018. Blood 10/05/2024 9:38 AM BEAN PICKER MACHINE OPERATOR 10/05/2024 3:07 PM BEAN PICKER MACHINE OPERATOR us Slime Dillon NP LAB BLOOD ORDERABLES [place] [address] [address] Department [place] [address] * Thyroid Function [place] (10/05/2024 9:38 AM BEAN PICKER MACHINE OPERATOR) TSH 2.41 0.30 - 4.20 mcIUnit/mL Blood 10/05/2024 9:38 AM BEAN PICKER MACHINE OPERATOR 10/05/2024 3:07 PM BEAN PICKER MACHINE OPERATOR us Slime Dillon CONCRETE HANDLER LAB BLOOD ORDERABLES Final Resul t Performing Organization Address City/[facility] Co de Phone Number FRANCISCO J YUN [address] [employer] [place] [address] * (ABNORMAL) CBC with auto differential (10/05/2024 9:38 AM BEAN PICKER MACHINE OPERATOR) Pathologist [facility] WBC 9.8 3.8 - 9.9 K/cumm Hgb 13.4 11.9 - 15.5 g/dL [facility] Hct 45.1 35.6 - 45.5 % [facility] Plt 266 150 - 400 K/cumm [facility] MPV 10.8 9.1 - 12.3 fL [facility] RBC 5.54(H) 3.90 - 5.20 M/cumm [facility] MCV 81.4 81.3 - 96.4 fL [facility] MCH 24.2(L) 27.1 - 33.3 pg [facility] MCHC 29.7(L) 32.3 - 35.7 g/dL [facility] RDW CV 15.0(H) 11.1 - 14.9 % [facility] RDW SD 43.9 35.7 - 48.1 fL [facility] NRBC abs 0.00 0.00 - 0.01 K/cumm [facility] CH Blood 10/05/2024 9:38 AM BEAN PICKER MACHINE OPERATOR 10/05/2024 3:07 PM BEAN PICKER MACHINE OPERATOR us Slime Dillon CONCRETE HANDLER LAB BLOOD ORDERABLES Final Resul t Performing Organization Address City/[facility] Co de Phone Number FRANCISCO J YUN [address] Department of [employer] [place], [place] [id number] * Hepatitis C antibody Blood (10/05/2024 9:38 AM BEAN PICKER MACHINE OPERATOR) [facility] Hep C Ab Nonreactive Nonreactive Comment: [...] revised on 2020. Blood 10/05/2024 9:38 AM BEAN PICKER MACHINE OPERATOR 10/05/2024 3:07 PM BEAN PICKER MACHINE OPERATOR us Slime Dillon NP LAB MICROBIOLOGY - GENERAL ORDER IMER Final Result Performing Organization Address [facility] de Phone Number FRANCISCO J YUN [address] [place] [address] * Albumin Creatinine Ratio, Urine (10/05/2024 9:38 AM BEAN PICKER MACHINE OPERATOR) Albumin Ur 24.3 mg/L Comment: Interpretive Data No reference range established. Current interpretive data was last revised 2019. Creatinine Ur 207.8 mg/dL FRANCISCO J Comment: Interpretive Data No reference range established. Current interpretive data was last revised 2019. Albumin Creatinine Ratio, Ur 12 1 - 29 mg/g FRANCISCO J Urine 10/05/2024 9:38 AM BEAN PICKER MACHINE OPERATOR 10/05/2024 3:07 PM BEAN PICKER MACHINE OPERATOR us Slime Dillon NP LAB URINE ORDERABLES Final Resul t Performing Organization Address [facility] de Phone Number MARKKAYLI YUN [address] [address] [place] [address] * (ABNORMAL) Vitamin D 25 hydroxy (10/05/2024 9:38 AM BEAN PICKER MACHINE OPERATOR) Pathologist [facility] Vitamin D 25-OH 27(L) 30 - 80 ng/mL Blood 10/05/2024 9:38 AM BEAN PICKER MACHINE OPERATOR 10/05/2024 3:07 PM BEAN PICKER MACHINE OPERATOR us Slime Dillon NP LAB BLOOD ORDERABLES Final Resul t Performing Organization Address [facility] de Phone Number [place] J [address] [address] [place] [address] * hCG, blood, quantitative (10/05/2024 9:38 AM BEAN PICKER MACHINE OPERATOR) hCG, quant <0.1 0.0 - 5.0 IUnits/L Comment: Interpretive Data Male: < 5 IU/L Non- premenopausal Female: <5 IU/L The Marquez hCG Beta Quant assay procedure was used. Results from different manufacturers or methods may not be comparable. ??Serial testing should be performed using the same method. Interpretive Data was last revised on 2023 Blood 10/05/2024 9:38 AM BEAN PICKER MACHINE OPERATOR 10/05/2024 3:07 PM BEAN PICKER MACHINE OPERATOR us Slime Dillon NP LAB BLOOD ORDERABLES Final Resul t Performing Organization Address [facility] de Phone Number [facility] [address] [place] [employer] [place] [address] * (ABNORMAL) Hemoglobin A1c (10/05/2024 9:38 AM BEAN PICKER MACHINE OPERATOR) Pathologist [facility] Hgb A1C 9.3(H) 4.0 - 5.6 % Estimated Average Glucose 220 mg/dL FRANCISCO J YUN Comment: The ADA recommends reporting an estimated Average Glucose (eAG) with all Hemoglobin A1c results using the equation derived from a study of 507 normal and diabetic adults. ??Minority populations were underrepresented and children were not included. ?? (Diabetes Care 31:2586-9300, 2008). ??The eAG is not equivalent to a fasting glucose. Blood 10/05/2024 9:38 AM BEAN PICKER MACHINE OPERATOR 10/05/2024 3:07 PM BEAN PICKER MACHINE OPERATOR us Slime Dillon NP LAB BLOOD ORDERABLES Final Resul t Performing Organization Address [facility] de Phone Number [facility] [address] [address] [facility] [place] [address] * (ABNORMAL) Lipid panel (10/05/2024 9:38 AM BEAN PICKER MACHINE OPERATOR) Pathologist [facility] Cholesterol 242(H) 30 - 199 mg/dL Comment: [...] 3. Rashad Blanca et al. BRAD Cardiol. 2020 March 28;5(5):540-548. doi: [email or web address] Current Interpretive Data was [...] 4 [facility] Blood 10/05/2024 9:38 AM BEAN PICKER MACHINE OPERATOR 10/05/2024 3:07 PM BEAN PICKER MACHINE OPERATOR us Slime Dillon CONCRETE HANDLER LAB [place]LOOD [place] [address] [address] Department [place] [address] * (ABNORMAL) Comprehensive metabolic panel (10/05/2024 9:38 AM BEAN PICKER MACHINE OPERATOR) Sodium 140 135 - 145 mmol/L Potassium, [...] CH AST 41 10 - 45 Units/L FRANCISCO J Blood 10/05/2024 9:38 AM BEAN PICKER MACHINE OPERATOR 10/05/2024 3:07 PM BEAN PICKER MACHINE OPERATOR us Slime Dillon CONCRETE HANDLER LAB BLOOD ORDERABLES Final Resul t [place] J [address] [address] Department [place] [address] * POCT hCG, urine (10/05/2024 9:00 AM BEAN PICKER MACHINE OPERATOR) HCG, ur, POC Negative Negative Lot Number [id number] QC Backgroud Clear Acceptable QC Control Line Acceptable Urine 10/05/2024 9:00 AM BEAN PICKER MACHINE OPERATOR us Slime Dillon NP POINT OF CARE TEST ORDERABLES Fi nal Result from Last 3 Months Insurance [employer] Care Teams Drain Layer Relationship Specialty Start Date End Date Slime Dillon NP [address] [place] [address] PCP - General Family Medicine 03/07/23
== END 2024-12-18 07:06 | disposition home or self-care (01) ==
LOC: ANHED 07:01
PROVIDERS: Emergency Provider Emergency Medicine; PCP Nurse Practitioner Family
DX: M54.32 Sciatica, left side (principal)
CPT/HCPCS: 99283; A9270

== ENCOUNTER 2025-01-25 08:07 | Outpatient (CLI) | payer OTHER, SELFPAY | END 2025-01-25 08:08 | disposition home or self-care (01) | LOC: ANHIMG 08:14 | PROVIDERS: PCP Nurse Practitioner Family; Visit Provider Nurse Practitioner Family | DX: N63.31 Unspecified lump in axillary tail of the right breast (principal) | CPT/HCPCS: 76642 ==

== ENCOUNTER 2025-05-11 15:20 | Emergency (ER) | payer OTHER, SELFPAY ==
--- OUTSIDE RECORDS SUMMARY | 2025-05-11 15:23 | XMS_ITS | Encounter Summary ---
Author Organization [facility] Healthcare Address [address] [place] [id number] Care Team Providers Care Periodicals Library Assistant Name Role Phone Slime Dillon NP Primary Care Provider [phone] Encounter Details Date Type Department Care Team (Late st Contact Info) Description 02/05/2025 Telephone [facility] [address] [place] [address] Anel Jiménez RN Social History Tobacco Use Types Packs/Day Years Used Date Smoking Tobacco: Never Passive Smoke Exposure: Never Smokeless Tobacco: Never PHQ-2 Answer Date Recorded PHQ-2 Total Score (If total score is 3 or more points, staff should administer the PHQ-9) 0 01/21/2025 PHQ-9 Answer Date Recorded PHQ-9 Total Score 21 10/05/2024 Comments Unknown Sex and Gender Information Value Date Recorded Sex Assigned at Not on file Legal Sex Female 3:17 PM CDT Gender Identity Female 01/23/2024 4:53 PM FIBER DRIER OPERATOR Sexual Orientation Straight 01/23/2024 4: 53 PM FIBER DRIER OPERATOR documented as of this encounter Plan of Treatment Not on file documented as of this encounter Visit Diagnoses Not on filedocumented in this encounter Care Teams Periodicals Library Assistant Relationship Specialty Start Date End Date Slime Dillon NP [address] [facility] [address] [place], [place] [phone] PCP - General Family Medicine 03/07/23 documented as of this encounter
--- OUTSIDE RECORDS SUMMARY | 2025-05-11 15:23 | XMS_ITS | Clinical Summary ---
Author Organization [facility] Address [address] [place] [address] Phone Care Team Providers Care Clerical Assigner Name Role Phone Irvin Sainz NP Primary Care Provider [phone] Allergies Active Allergy Reactions Criticality Noted Date Comments Penicillins Unknown 03/07/2023 Was told from a child that she is allergic to it Medications sertraline (ZOLOFT) 50 mg tablet Take 1 tablet (50 mg total) by mouth daily 90 tablet 1 11/19/20 24 Active albuterol HFA (PROVENTIL HFA,VENTOLIN HFA,PROAIR HFA) 90 mcg/actuation inhaler INHALE 2 PUFFS BY MOUTH EVERY 6 HOURS NEEDED FOR WHEEZE OR FOR SHORTNESS OF BREATH 6.7 each 1 02/13/20 25 Active fluticasone propion-salmet Greta (ADVAIR DISKUS) 100-50 mcg/dose diskus inhaler INHALE 1 PUFF INTO LUNGS TWICE A DAY -RINSE MOUTH WITH WATER AFTER USE. DO NOT SWALLOW. 60 each 1 03/25/20 25 Active metFORMIN XR (GLUCOPHAGE XR) 500 mg 24 hr tablet Take 2 tablets (1,000 mg total) by mouth daily with breakfast 90 tablet 1 04/23/20 25 Active rosuvastatin (CRESTOR) 10 mg tablet Take 1 tablet (10 mg total) by mouth daily 90 tablet 1 10/09/20 24 025 Discontinued semaglutide (RYBELSUS) 14 mg tabletIndicati ons:Type 2 diabetes mellitus with hyperglycemia, without long-term current use of insulin (HCC) Take 1 tablet (14 mg total) by mouth smudger before breakfast 90 tablet 1 01/22/20 025 Discontinued Active Problems Problem Noted Date Diagnosed Date Pre-existing type 2 diabetes mellitus during in first trimester 05/01/2025 Obesity complicating in first trimeste r 05/01/2025 Supervision of high-risk , first trimes ter 05/01/2025 Overview (05/01/2025): SEROLOGIES NEEDED [] OB consult only, [] Co-management vs. [x] Full MFM Care; [] Red Team [] Blue Team Referring Provider: Self Referral [] or Medicare Insurance [x] Dating Criteria: LMP 02/21/25 with ASHA 11/28/25 [] Labs: Rh [ ], Ab [ ], Rubella [ ], HIV [ ], HepBSAg [ ], HepBSAb [ ], HepBCAb [ ], RPR [ ], Hep C [ ], Varicella [ ], GC/CT [ ] [] Aneuploidy Screening: [] Carrier Screening: [] Hgb electrophoresis: [] CBC/Hgb: [] Early 1hr GTT (if indicated): [] UCx: [] Pap: [] LD ASA (if indicated): [] EPDS [ ]; PNBHS referral (if indicated): 2nd Trimester [] Anatomy ultrasound: [] CBC/1hr gtt at 24-28wks: [] Rhogam at 28 wks (if Rh neg): 3rd Trimester [] CBC/HIV/RPR/T&S: [] GBS: [] GC/CT (if indicated): [] testing: Counseling [] MOD: [] Place of delivery: [] Epidural: [] Accepts Blood Products: [] Stop ASA: [] MOC: [] Method of feeding: [] Protection Manager (specifically which provider): [] PP Depression Discussed: [] PP visits scheduled: Vaccines [] Flu Shot (Jul-Oct): [] COVID vaccine: [] Tdap (27-36wks): [] RSV vaccine (32-36wks): [] PP HPV vaccine counseling (<=26 yo): Type 2 diabetes mellitus with hyperglycemia 01/26 Assessment & Plan (04/08/2025 2:22 PM CDT): A1c 7.4 today in office, previous 8.9. Great improvement since increasing the Rybelsus to 14 mg recently. Will continue at this dose and follow up in 4 months. Assessment & Plan (01/21/2025 9:29 AM SENIOR INFORMATION SYSTEMS ARCHITECT): Updated labs ordered, has been tolerating Rybelsus--previous A1c x 09/2024 was 9.3. Assessment & Plan (11/19/2024 9:54 AM SENIOR INFORMATION SYSTEMS ARCHITECT): Tolerating Rybelsus well, will repeat labs at follow up in 2 months. Assessment & Plan (10/05/2024 9:21 AM SENIOR INFORMATION SYSTEMS ARCHITECT): Previous A1c 8.1%, overdue for labs and [...] complication, without long-term current use of insulin 03/07/2023 Assessment & Plan (02/14/2024 4:06 PM CDT): Previous A1c 8.3%, overdue for labs and follow up. Has been taking Metformin 500 mg in the am and 1,000 mg in the pm. Updated labs ordered. Assessment & Plan (03/07/2023 2:12 PM CDT): Has been on Metformin 500 mg daily Will get updated labs. Anxiety disorder affecting , antepartum 03/07/2023 Assessment & Plan (04/08/2025 2:23 PM CDT): Stable on Sertraline 50 mg daily. Assessment & Plan (11/19/2024 9:54 AM SENIOR INFORMATION SYSTEMS ARCHITECT): Much improvement on the Sertraline 50 mg, will continue. Assessment & Plan (10/05/2024 9:18 AM SENIOR INFORMATION SYSTEMS ARCHITECT): Not at goal. Will switch from Lexapro to Zoloft. Education provided. Assessment & Plan (03/07/2023 2:13 PM CDT): Stable on Lexapro 20 mg. Denies SI/HI Moderate episode of recurrent major depressive d isorder 03/07/2023 Assessment & Plan (10/05/2024 9:19 AM SENIOR INFORMATION SYSTEMS ARCHITECT): As above. Assessment & Plan (02/14/2024 4:06 PM CDT): Stable on Lexapro 20 mg. Denies SI/HI Assessment & Plan (03/07/2023 2:13 PM CDT): Stable on Lexapro 20 mg. Denies SI/HI Mild intermittent asthma without complication Assessment & Plan (01/21/2025 9:28 AM SENIOR INFORMATION SYSTEMS ARCHITECT): Has been needing prn inhaler 2-3x/day. Discussed maintenance inhaler, will start daily Advair. Education provided. Assessment & Plan (10/05/2024 9:19 AM SENIOR INFORMATION SYSTEMS ARCHITECT): Stable, uses prn inhaler approximately very infrequently. Assessment & Plan (03/07/2023 2:13 PM CDT): Stable, uses prn inhaler approximately 1-2x every 2 weeks. Please consider the albuterol as a rescue only medication. If needing the albuterol more than 2xwk, please contact office. Class 3 severe obesity due t o excess calories with serious comorbidity and body mass index (BMI) of 45.0 to 49.9 in adult 03/07/2023 Assessment & Plan (04/08/2025 2:23 PM CDT): Healthy, low carbohydrate lifestyle and exercise for 150min/week recommended Assessment & Plan (01/21/2025 9:28 AM SENIOR INFORMATION SYSTEMS ARCHITECT): Down 6 lbs since last visit. Healthy, low carbohydrate lifestyle and exercise for 150min/week recommended. Assessment & Plan (11/19/2024 9:54 AM SENIOR INFORMATION SYSTEMS ARCHITECT): Healthy, low carbohydrate lifestyle and exercise for 150min/week recommended Assessment & Plan (10/05/2024 9:19 AM SENIOR INFORMATION SYSTEMS ARCHITECT): Healthy, low carbohydrate lifestyle and exercise for 150min/week recommended. Assessment & Plan (02/14/2024 4:06 PM CDT): Healthy, low carbohydrate lifestyle and exercise for 150min/week recommended Assessment & Plan (03/07/2023 2:13 PM CDT): Healthy, low carbohydrate lifestyle and exercise for 150min/week recommended Estimated Date of Delivery Comme nts Yes 01/03/2026 Based on Ultraso und Encounters Date Type Department Care Team Description 05/10/2025 9:45 AM CDT Office Visit [facility] Maternal- Medicine [address] 7th [address] [place] [phone] Supervision of high-risk , unspecified trimester 05/10/2025 9:15 AM CDT - 05/10/2025 11:59 PM CDT Hospital Encounter [facility] - Ultrasound [address] 7th [address], [address] [place], [place] [id number] Type 2 diabetes mellitus without complication, without long-term current use of insulin (HCC) (Primary Dx); Supervision of high-risk , unspecified trimester; Supervision of high-risk , first trimester Discharge Disposition: Discharge to home or self care 04/25/2025 Telephone [facility] Obstetrics and Gynecology [address] [place] [address] Trell Lopeza 04/24/2025 Telephone [facility] Obstetrics and Gynecology [facility] [place] [address] LopezMarcelina 04/24/2025 Results Follow-Up [facility] Primary Care at [address] [address] Irvin Sainz NP hCG, blood, quantitative 04/24/2025 Telephone [facility] [address] [place] [address] Anel Jiménez RN 04/23/2025 2:45 PM CDT Lab [facility] Outpatient Lab at [address] [phone] 04/23/2025 2:36 PM CDT - 04/23/2025 11:59 PM CDT Hospital Encounter [address] [address] Positive test Discharge Disposition: Discharge to home or self care 04/23/2025 Telephone [facility] [address] [facility] [address] [place] [address] Edith Guzman MD 04/23/2025 Orders Only [facility] Primary Care at [address] [phone] Irvin Sainz NP Positive test (Primary Dx) 04/16/2025 Telephone [facility] Primary Care at [address] [address] Irvin Sainz NP 04/08/2025 2:00 PM CDT Office Visit [facility] Primary Care at [address] [phone] Irvin Sainz NP Type 2 diabetes mellitus with hyperglycemia, with long-term current use of insulin (HCC) (Primary Dx); Anxiety; Class 3 severe obesity due to excess calories with serious comorbidity and body mass index (BMI) of 45.0 to 49.9 in adult 04/08/[address] [address] Anel Jiménez, RN 04/08/2025 Telephone [facility] [address] [address] Anel Jiménez, RN 04/05/2025 Telephone [address] [place] [address] Yamilet Hathaway 04/04/[address] [address] Anel Jiménez, RN 04/04/[address] [address] Anel Jiménez, RN 04/03/[address] [address] Anel Jiménez, RN 04/02/[address] [address] Anel Jiménez, KEREN 03/27/2025 11:00 AM CDT Office Visit [address], [place] [address] Tino Rose MD Mass of right axilla 03/27/2025 Orders Only [address] [address] Tino Rose MD Mass of right axilla (Primary Dx) 03/11/2025 Telephone [facility] Primary Care at [address] [phone] Irvin Sainz NP Med Refill 03/08/2025 1:55 PM CDT - 03/08/2025 11:59 PM CDT Hospital Encounter [address] [address] Mass of right axilla Discharge Disposition: Discharge to home or self care 03/08/2025 Results Follow-Up [facility] Primary Care at [address] [phone] Irvin Saizn NP US Axillary Right Non-Breast 02/27/2025 Orders Only [facility] Primary Care at [address] [phone] Irvin Sainz NP from Last 3 Months Immunizations Immunization Administration Dates Next Due Influenza, Unspecified 02/14/2024(Deferr [...] Passive Smoke Exposure: Never Smokeless Tobacco: Never AUDIT-C Answer Date Recorded Q1: How often do you have a drink containing alcohol? Never 05/10/2025 Q2: How many drinks containi ng alcohol do you have on a typical day when you are drinking? Patient does not drink Q3: How often do you have si x or more drinks on one occasion? Never 05/10/2025 PHQ-2 Answer Date Recorded PHQ-2 Total Score (If total score is 3 or more points, staff should administer the PHQ-9) 0 04/08/2025 PHQ-9 Answer Date Recorded PHQ-9 Total Score 21 10/05/2024 Estimated Date of Delivery Comme nts Yes 01/03/2026 Based on Ultraso und Sex and Gender Information Value Date Recorded Sex Assigned at Not on file Legal Sex Female 3:17 PM CDT Gender Identity Female 01/23/2024 4:53 PM SENIOR INFORMATION SYSTEMS ARCHITECT Sexual Orientation Straight 01/23/2024 4: 53 PM SENIOR INFORMATION SYSTEMS ARCHITECT Obstetrics History Para Term AB IAB SAB Ectopic Multiple Livin g Live Births 1 Date Outcome GA Total Labor Labor/2nd/3rd Weight Sex Type Anes PTL Pamela A1 A5 Name Clin Current Summary Episode Dates Number of Fetuses Estimated Date of Delivery 05/01/2025 - Present (05/11/2025) 01/03/2026 (set by Rianna Becker MD on 05/10/2025 based on Ultrasound on 05/10/2025) Dating Summary Based On ASHA GA Diff Last Menstrual Period on 02/21/2025 11/28/2025 +5w1d Ultrasound on 05/10/2025 01/03/2026 Working GA:6w0d Vitals Pregravid Weight Height TWG (As of 05/11/2025) Pregrav id BMI 157.5 cm (5' 2) Date GA Fund Present FHR Mvmt BP Weight Edema Alb Glu Ket Dil/ Eff/Sta 6w0d Inpatient data not displayed here. See encounter summary. Notes Progress Notes - Abstract - 05/01/2025 - GA:4w5d 05/01/2025 - 4w5d - Iman Art RMA Pt has not been seen by OB yet. PCP records for DM management are in [facility]. Most recent visit was 04/08/25. Last Filed Vital Signs Vital Sign Reading Time Taken Comments Blood Pressure 139/88 05/10/2025 10:13 AM CDT Pulse 99 05/10/2025 10:08 AM CDT Temperature 36.8 C (98.2 F) 04/08/2025 1:38 PM CDT Respiratory Rate 28 12/10/2024 11:0 7 AM SENIOR INFORMATION SYSTEMS ARCHITECT Oxygen Saturation 100% 05/10/2025 10: 08 AM CDT Inhaled Oxygen Concentration - - Weight 124.4 kg (274 lb 3.2 oz) 025 10:08 AM CDT Height 157.5 cm (5' 2) 05/10/2025 10:0 8 AM CDT Body Mass Index 50.15 05/10/2025 10:08 AM CDT Plan of Treatment Health Maintenance Due Date Last Done Comments Dilated Eye Exam 1996 Hepatitis B Screening 02/18/2014 Regular Well Visit/Exam 18-64 02/18/2014 Foot Exam 03/07/2024 03/07/2023 Cervical Cancer Screening 05/20/2025 Po stponed from 1996 (Patient declined, but will receive in the future) Influenza Vaccine (Season Ended) 2025 Pneumococcal vaccine <65 (1 of 2 - PCV) 09/20/2025 Postponed from 02/18/2015 (Patient declined, but will receive in the future) Albumin Creatinine Ratio, Urine 10/05/2025 10/05/2024, 03/07/2023 DTaP/Tdap/Td Vaccine (1 - Tdap) 10/05/2025 Postponed from 02/18/2007 (Patient declined, but will receive in the future) Hemoglobin A1C 10/09/2025 04/08/2025, 2 02/2025, 10/05/2024, Additional history exists Varicella Vaccines (1 of 2 - 13+ 2-dose series) 10/09/2025 Postponed from 02/18/2009 (Patient declined, but will receive in the future) Lipid Panel 01/21/2026 01/21/2025, 110 06/2024, 02/14/2024, Additional history exists eGFR 01/21/2026 01/21/2025, 0 06/2024, 02/14/2024, Additional history exists Depression Screening 04/08/2026 04/08/2025, 01/21/2025, 11/19/2024, Additional history exists Hepatitis C Screening Completed 10/05/2024 HPV Vaccines Aged Out No longer eligi ble based on patient's age to complete this topic Procedures Procedure Name Priority Date/Time Associated Diagnosis Comments US OB LIMITED Schedule Routine, Read Routine (OP Routine) 05/10/2025 9:20 AM CDT Supervision of high-risk , unspecified trimester HCG, BLOOD, QUANTITATIVE Routine 04/23/2025 2:36 PM CDT Positive test POCT HEMOGLOBIN A1C Routine 04/08/2025 1 :56 PM CDT Type 2 diabetes mellitus with hyperglycemia, with long-term current use of insulin (HCC) US AXILLARY NON-BREAST RIGHT Schedule Routine, Read Routine (OP Routine) 03/08/2025 2:20 PM CDT Mass of right axilla EGFR Routine 01/21/2025 9:27 AM SENIOR INFORMATION SYSTEMS ARCHITECT Type 2 diabetes mellitus with hyperglycemia, without long-term current use of insulin (HCC) LIPID PANEL Routine 01/21/2025 9:27 AM SENIOR INFORMATION SYSTEMS ARCHITECT Type 2 diabetes mellitus with hyperglycemia, without long-term current use of insulin (HCC) HEPATITIS C ANTIBODY Routine 10/05/2024 9:38 AM SENIOR INFORMATION SYSTEMS ARCHITECT Encounter for hepatitis C screening test for low risk patient ALBUMIN CREATININE RATIO, URINE Routine 10/05/2024 9:38 AM SENIOR INFORMATION SYSTEMS ARCHITECT Type 2 diabetes mellitus with hyperglycemia, without long-term current use of insulin (HCC) from Last 3 Months or Most Recently Relevant to Health Maintenance Results * US Ob Limited (05/10/2025 9:20 AM CDT) Anatomical Region Laterality Modality Abdomen N/A Ultrasound 05/10/2025 9:23 AM CDT Impressions 05/10/2025 10:01 AM CDT Intrauterine gestational sac with yolk sac and small embryo which are NOT consistent with prior clinical dating. FHT not visualized today which can be normal at <7mm, would recommend repeat in one week. I discussed these findings with the patient today. Narrative Procedure Note Jayda Diamond MD - 05/10/2025 IMPRESSION: Intrauterine gestational sac with yolk sac and small embryo which are NOTconsistent with prior clinical dating. FHT not visualized today which canbe normal at <7mm, would recommend repeat in one week. I discussed thesefindings with the patient today. us Patricia Jones MD IMG OB US PROCEDURES Final Result * (ABNORMAL) hCG, blood, quantitative (04/23/2025 2:36 PM CDT) hCG, quant 4,009.0(H ) 0.0 - 5.0 IUnits/L Comment: Interpretive Data Male: < 5 IU/L Non- premenopausal Female: <5 IU/L The Marquez hCG Beta Quant assay procedure was used. Results from different manufacturers or methods may not be comparable. Serial testing should be performed using the same method. Interpretive Data was last revised on 2023 Blood 04/23/2025 2:36 PM CDT 04/23/2025 8:08 PM CDT us Irvin Sainz PRESIDENT & FOUNDER LAB BLOOD ORDERABLES Edited Resu lt - Final [id number] [facility] [place] [address] * (ABNORMAL) POCT hemoglobin A1c (04/08/2025 1:56 PM CDT) Hemoglobin A1C, POC 7.4(A) 4.0 - 5.6 % Blood 04/08/2025 1:56 PM CDT us Irvin Sainz NP POINT OF CARE TEST ORDERABLES Fi nal Result * US Axillary Right Non-Breast (03/08/2025 2:20 PM CDT) Anatomical Region Laterality Modality Upper Extremities Right Ultrasound 03/08/2025 2:43 PM CDT Impressions 03/08/2025 2:43 PM CDT Lesion in the right axilla may be slightly larger. This may be an inflammatory process such as phlegmon or complex abscess. A surgical consultation is recommended. BI-RADS CATEGORY 4: SUSPICIOUS ABNORMALITY. DRAINAGE OR BIOPSY SHOULD BE CONSIDERED The results were discussed with the patient. Electronically signed by: Scott Monroe M.D. Narrative 03/08/2025 2:43 PM CDT EXAMINATION: US AXILLARY NON-BREAST RIGHT ORDERING HEALTHCARE PROVIDER: IRVIN SAINZ HISTORY: 6 week ultrasound follow up for mass COMPARISON: 01/25/2025 TECHNIQUE: Targeted sonographic evaluation of the right axilla was performed. FINDINGS: Targeted sonographic images of the right axilla were obtained. At the area of concern in the right axilla, an ill-defined heterogeneous mixed echogenicity focus is seen which appears to be partially fluid. This measures 3.7 x 3.6 x 1.9 cm, previously 3.2 x 2.1 x 2.0 cm. There is mild internal vascularity. No enlarged lymph nodes are seen. Procedure Note Scott Monroe MD - 03/08/2025 EXAMINATION: US AXILLARY NON-BREAST RIGHT ORDERING HEALTHCARE PROVIDER: IRVIN SAINZ HISTORY: 6 week ultrasound follow up for mass COMPARISON: 01/25/2025 TECHNIQUE: Targeted sonographic evaluation of the right axilla was performed. FINDINGS: Targeted sonographic images of the right axilla were obtained. At the area of concern in the right axilla, an ill-defined heterogeneous mixed echogenicity focus is seen which appears to be partially fluid. This measures 3.7 x 3.6 x 1.9 cm, previously 3.2 x 2.1 x 2.0 cm. There is mild internal vascularity. No enlarged lymph nodes are seen. IMPRESSION: Lesion in the right axilla may be slightly larger. This may be an inflammatory process such as phlegmon or complex abscess. A surgical consultation is recommended. BI-RADS CATEGORY 4: SUSPICIOUS ABNORMALITY. DRAINAGE OR BIOPSY SHOULD BE CONSIDERED The results were discussed with the patient. Electronically signed by: Scott Monroe M.D. us Irvin Sainz PRESIDENT & FOUNDER IMG US PROCEDURES Final Result * eGFR (01/21/2025 9:27 AM SENIOR INFORMATION SYSTEMS ARCHITECT) eGFR >90 >=60 mL/min/1. 73 m2 Comment: Interpretive Data Reference Interval Normal >/= 90 mL/min/1.73m2 Mildly decreased* 60 - 89 mL/min/1.73m2 Mildly to moderately decreased 45 - 59 mL/min/1.73m2 Moderately to severely decreased 30 - 44 mL/min/1.73m2 Severely decreased 15 - 29 mL/min/1.73m2 Kidney Failure < 15 mL/min/1.73m2 *Relative to young adult level Estimated glomerular [...] interpretive data was last reviewed 2021. Blood 01/21/2025 9:27 AM SENIOR INFORMATION SYSTEMS ARCHITECT 01/21/2025 9:35 PM SENIOR INFORMATION SYSTEMS ARCHITECT us Irvin Sainz NP LAB BLOOD ORDERABLES Final Resul t [id number] [place] [address] * (ABNORMAL) Lipid panel (01/21/2025 9:27 AM SENIOR INFORMATION SYSTEMS ARCHITECT) Cholesterol 219(H) 30 - 199 mg/dL Comment: Interpretive Data Ages < or = 19 years Acceptable: <170 mg/dL Borderline high: 170-199 mg/dL High: >or= 200 mg/dL Ages > or = 20 years Desirable: <200 mg/dL Borderline high: 200-239 mg/dL High: >or= 240 mg/dL Literature References: 1. Expert Panel on Integrated Guidelines for Cardiovascular Health and Risk Reduction in Children and Adolescents. Pediatrics 2011;128:S213 2. NCEP Expert Panel. Circulation 2004;110:227 Current Interpretive Data was last revised on 2018. Triglycerides 159(H) <=149 mg/dL FRANCISCO J YUN Comment: Interpretive Data Ages < or = 9 years Acceptable: <75 mg/dL Borderline high: 75-99 mg/dL High: >or= 100 mg/dL Ages 10 to 20 years Acceptable: <90 mg/dL Borderline high: 90-129 mg/dL High: >or= 130 mg/dL Ages > or = 20 years Desirable: <150 mg/dL Borderline high: 150-199 mg/dL High: 200-499 mg/dL Very high: >or= 499 mg/dL Literature References: 1. Expert Panel on Integrated Guidelines for Cardiovascular Health and Risk Reduction in Children and Adolescents. Pediatrics 2011;128:S213 2. NCEP Expert Panel. Circulation 2004;110:227 Current Interpretive Data was last revised on 2018. HDL 52 >=40 mg/dL FRANCISCO J YUN Comment: Interpretive Data Ages < or = 19 years Acceptable: >45 mg/dL Borderline low: 40-45 mg/dL Low: <40 mg/dL Ages > or = 20 years Desirable: >or= 60 mg/dL Low: <40 mg/dL Literature References: 1. Expert Panel on Integrated Guidelines for Cardiovascular Health and Risk Reduction in Children and Adolescents. Pediatrics 2011;128:S213 2. NCEP Expert Panel. Circulation 2004;110:227 Current Interpretive Data was last revised on 2018. LDL, calculated 139(H) <=129 mg/dL FRANCISCO J YUN Comment: Interpretive Data Ages < or = 19 years Acceptable: <110 mg/dL Borderline high: 110-129 mg/dL High: >or= 130 mg/dL Ages > or = 20 years Optimal: <100 mg/dL Near optimal: 100-129 mg/dL Borderline high: 130-159 mg/dL High: >160 mg/dL Calculated using the Rashad LDL-C estimating equation. This equation was implemented on 2024. Prior to this date LDL-C was estimated using the Friedewald equation. Literature References: 1. Expert Panel on Integrated Guidelines for Cardiovascular Health and Risk Reduction in Children and Adolescents. Pediatrics 2011;128:S213 2. NCEP Expert Panel. Circulation 2004;110:227 3. Rashad Gardner al. BRAD Cardiol. 2019March 28;5(5):540-548. doi: 10.1001/[email or web address].2020.0013 Current Interpretive Data was last revised on 2024. Non-HDL Cholesterol 167 mg/dL FRANCISCO J YUN Comment: Interpretive Data Ages < or = 19 years Acceptable: <120 mg/dL Borderline high: 120-144 mg/dL High: >145 mg/dL Ages > or = 20 years When triglycerides are >200 mg/dL, Non-HDL cholesterol is a secondary target of therapy with treatment goals that are 30 mg/dL greater than the LDL cholesterol target. Literature References: 1. Expert Panel on Integrated Guidelines for Cardiovascular Health and Risk Reduction in Children and Adolescents. Pediatrics 2011;128:S213 2. NCEP Expert Panel. Circulation 2004;110:227 Current Interpretive Data was last revised on 2018. Chol/HDL ratio 4 FRANCISCO J YUN Blood 01/21/2025 9:27 AM SENIOR INFORMATION SYSTEMS ARCHITECT 01/21/2025 9:18 PM SENIOR INFORMATION SYSTEMS ARCHITECT Irvin Sainz PRESIDENT & FOUNDER LAB BLOOD ORDERABLES Final Resul t [id number] [place] [address] * Hepatitis C antibody Blood (10/05/2024 9:38 AM SENIOR INFORMATION SYSTEMS ARCHITECT) Pathologist [facility] Hep C Ab Nonreactive Nonreactive Comment: Interpretive Data Nonreactive: Antibodies to HCV not detected. Does NOT exclude the possibility of recent exposure to HCV. Equivocal: Equivocal for HCV antibodies. Supplemental molecular testing will be automatically performed to determine infection status in accordance with current CDC screening recommendations. Reactive: Positive for HCV antibodies. This may represent current or past HCV infection. Supplemental molecular testing will be automatically performed to determine current infection status in accordance with current CDC screening recommendations. Interpretive data was last revised on 2020. Blood 10/05/2024 9:38 AM SENIOR INFORMATION SYSTEMS ARCHITECT 10/05/2024 3:07 PM SENIOR INFORMATION SYSTEMS ARCHITECT us Irvin Sainz NP LAB MICROBIOLOGY - GENERAL ORDER IMER Final Result Performing Organization Address [facility] de Phone Number FRANCISCO J YUN [id number] [address] [place] [address] * Albumin Creatinine Ratio, Urine (10/05/2024 9:38 AM SENIOR INFORMATION SYSTEMS ARCHITECT) Pathologist [facility] Albumin Ur 24.3 mg/L Comment: Interpretive Data No reference range established. Current interpretive data was last revised 2019. Creatinine Ur 207.8 mg/dL [facility] Comment: Interpretive Data No reference range established. Current interpretive data was last revised 2019. Albumin Creatinine Ratio, Ur 12 1 - 29 mg/g [facility] Urine 10/05/2024 9:38 AM SENIOR INFORMATION SYSTEMS ARCHITECT 10/05/2024 3:07 PM SENIOR INFORMATION SYSTEMS ARCHITECT us Irvin Sainz NP LAB URINE ORDERABLES Final Resul t Performing Organization Address [facility] de Phone Number FRANCISCO J YUN [address] [address] [place] [address] from Last 3 Months or Most Recently Relevant to Health Maintenance Insurance [employer] Care Teams Clerical Assigner Relationship Specialty Start Date End Date Irvin Sainz NP [address] [facility] [address] [place] [address] PCP - General Family Medicine 03/07/23
--- OUTSIDE RECORDS SUMMARY | 2025-05-11 15:23 | XMS_ITS | Encounter Summary ---
Author Organization [facility] Address [address] [place] [address] Care Team Providers Care Rail Bonder Name Role Phone Slime Dillon NP Primary Care Provider [phone] Encounter Details Date Type Department Care Team (Latest Contact Info) Description 04/24/2025 Results Follow-Up [facility] Primary Care at [address] [address] Slime Dillon NP [address] [place] [address] [address] [place] [address] hCG, blood, quantitative Social History Tobacco Use Types Packs/Day Years [...] CDT Gender Identity Female 01/23/2024 4:53 PM DOOR CLAMPER Sexual Orientation Straight 01/23/2024 4: 53 PM DOOR CLAMPER documented as of this encounter Plan of Treatment Not on file documented as of this encounter Visit Diagnoses Not on filedocumented in this encounter Care Teams Rail Bonder Relationship Specialty Start Date End Date Slime Dillon NP [address] [address] PCP - General Family Medicine 03/07/23 documented as of this encounter
--- OUTSIDE RECORDS SUMMARY | 2025-05-11 15:23 | XMS_ITS | Encounter Summary ---
Author Organization [facility] Address [address] [place] [address] Phone Care Team Providers Care Business Continuity Analyst Name Role Phone Slime Dillon NP Primary Care Provider [phone] Reason for Referral * Diagnostic Imaging (Routine) - Pending Review Specialty Diagnoses / Procedures Referred By Contstewart t Referred To Contact Diagnoses Supervision of high-risk , unspecified trimester Procedures US Ob Limited Slime Becker MD [address] [facility] [id number] [place] [address] Phone: tel: fax: [facility] (All Locations) Referral ID Status Reason Start Date Expiration Date V isits Requested Visits Authorized [id number] Pending Review 05/10/2025 06/09/2026 1 1 Reason for Visit * Reason Comments High Risk Gestation * Consultation (Routine) - Closed Specialty Diagnoses / Procedures Referred By Contstewart t Referred To Contact Maternal and Medicine Diagnoses Supervision of high-risk , unspecified trimester Patricia Jones MD [address] [facility] [address] [place] [address] Phone: tel: fax: [facility] (All Locations) Referral ID Status Reason Start Date Expiration Date V isits Requested Visits Authorized [id number] Closed Specialty Services Required 04/25/2025 05/25/2026 1 1 Encounter Details Date Type Department Care Team (Marta henry Contact Info) Description 05/10/2025 9:45 AM CDT Office Visit [facility] Maternal- Medicine [address] [facility] 7th Floor [address] [place] [address] Supervision of high-risk , unspecified trimester Social History Tobacco Use Types Packs/Day Years [...] CDT Gender Identity Female 01/23/2024 4:53 PM HUMAN RESOURCES TRAINEE Sexual Orientation Straight 01/23/2024 4: 53 PM HUMAN RESOURCES TRAINEE documented as of this encounter Last Filed Vital Signs Vital Sign Reading Time Taken Comments Blood Pressure 139/88 05/10/2025 10:13 AM CDT Pulse 99 05/10/2025 10:08 AM CDT Temperature - - Respiratory Rate - - Oxygen Saturation 100% 05/10/2025 10: 08 AM CDT Inhaled Oxygen Concentration - - Weight 124.4 kg (274 lb 3.2 oz) 025 10:08 AM CDT Height 157.5 cm (5' 2) 05/10/2025 10:0 8 AM CDT Body Mass Index 50.15 05/10/2025 10:08 AM CDT documented in this encounter Functional Status * Audit-C Score Answer Date of Assessment Author 0 05/10/2025 10:10 AM Rianna Cabral CMA * Question Answer Date of Assessment Author Q1: How often do you have a drink containing alcohol? Never 05/10/2025 10:10 AM Michelle Cabral CM A Q2: How many drinks containing alcohol do you have on a typical day when you are drinking? Patient does not drink 05/10/2025 10:10 AM Michelle Cabral CMA Q3: How often do you have six or more drinks on one occasion? Never 05/10/2025 10:10 AM Michelle Cabral CM A documented as of this encounter Plan of Treatment Scheduled Orders Name Type Priority Associated Diagnoses Orde r Schedule US Ob Limited Imaging Schedule Routine , Read Routine (OP Routine) Supervision of high-risk , unspecified trimester Expected: 05/10/2025, Expires: 05/10/2026 documented as of this encounter Visit Diagnoses Diagnosis Supervision of high-risk , unspecified trimester documented in this encounter Orders Outpatient Referral Count Last Ordered Date Fir st Ordered Date AMB REFERRAL TO [facility]ER[facility] MEDICINE 1 05/10/2025 documented in this encounter Care Teams Business Continuity Analyst Relationship Specialty Start Date End Date Slime Dillon NP [address] [facility] [address] [place] [address] PCP - General Family Medicine 03/07/23 documented as of this encounter
--- OUTSIDE RECORDS SUMMARY | 2025-05-11 15:23 | XMS_ITS | Encounter Summary ---
Author Organization [facility] Address [address] [place] [address] Care Team Providers Care Electronic Operator Name Role Phone Slime Dillon NP Primary Care Provider Reason for Referral * Diagnostic Imaging (Routine) - Pending Review Specialty Diagnoses / Procedures Referred By Jessica antonio Referred To Contact Diagnoses Type 2 diabetes mellitus without complication, without long-term current use of insulin (HCC) Supervision of high-risk , first trimester Procedures US Ob Limited Patricia Jones MD [address] [address] Phone: tel: fax: [facility] (All Locations) Referral ID Status Reason Start Date Expiration Date V isits Requested Visits Authorized [id number] Pending Review 05/10/2025 06/09/2026 1 1 * Diagnostic Imaging (Routine) - Closed Specialty Diagnoses / Procedures Referred By Jessica antonio Referred To Contact Diagnoses Supervision of high-risk , unspecified trimester Procedures US Ob Limited Patricia Jones MD [address] [address] Phone: tel: fax: [facility] (All Locations) Referral ID Status Reason Start Date Expiration Date Visits Re quested Visits Authorized [id number] Closed 04/25/2025 05/25/2026 1 1 Reason for Visit * Diagnostic Imaging (Routine) - Closed Specialty Diagnoses / Procedures Referred By Contac t Referred To Contact Diagnoses Supervision of high-risk , unspecified trimester Procedures US Ob Limited Patricia Jones MD [address] [facility] [address] [place] [address] Phone: tel: fax: [facility] (All Locations) Referral ID Status Reason Start Date Expiration Date Visits Re quested Visits Authorized [id number] Closed 04/25/2025 05/25/2026 1 1 Encounter Details Date Type Department Care Team (Latest Contact Info) Description 05/10/2025 9:15 AM CDT - 05/10/2025 11:59 PM CDT Hospital Encounter [facility] - [facility] [address] [facility], 7th Floor, [address] [facility] [place] [address] Type 2 diabetes mellitus without complication, without long-term current use of insulin (HCC) (Primary Dx); Supervision of high-risk , unspecified trimester; Supervision of high-risk , first trimester Discharge Disposition: Discharge to home or self care Social History Tobacco Use Types Packs/Day Years [...] CDT Gender Identity Female 01/23/2024 4:53 PM 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 DO NOT SWALLOW. 60 each 1 03/25/2025 metFORMIN XR (GLUCOPHAGE XR) 500 mg 24 hr tablet Take 2 tablets (1,000 mg total) by mouth daily with breakfast 90 tablet 1 04/23/2025 sertraline (ZOLOFT) 50 mg tablet Take 1 tablet (50 mg total) by mouth daily 90 tablet 1 11/19/2024 documented as of this encounter Discharge Disposition Disposition Code Departure Means Destination Discharge to home or self care documented in this encounter Plan of Treatment Scheduled Orders Name Type Priority Associated Diagnoses Orde r Schedule US Ob Limited Imaging Schedule Routine , Read Routine (OP Routine) Type 2 diabetes mellitus without complication, without long-term current use of insulin (HCC) Supervision of high-risk , first trimester Expected: 05/17/2025, Expires: 05/10/2026 documented as of this encounter Procedures Procedure Name Priority Date/Time Associated Diagnosis Comments US OB LIMITED Schedule Routine, Read Routine (OP Routine) 05/10/2025 9:20 AM CDT Supervision of high-risk , unspecified trimester documented in this encounter Results * US Ob Limited (05/10/2025 9:20 [...] MD IMG OB US PROCEDURES Final Result documented in this encounter Visit Diagnoses Diagnosis Type 2 diabetes mellitus without complication, without long-term current use of insulin (HCC)- Primary Supervision of high-risk , unspecified trimester Supervision of high-risk , first trimester documented in this encounter Care Teams Electronic Operator Relationship Specialty Start Date End Date Slime Dlilon NP [address] [facility] [address] [place] [address] PCP - General Family Medicine 03/07/23 documented as of this encounter
--- OUTSIDE RECORDS SUMMARY | 2025-05-11 15:23 | XMS_ITS | Referral Summary ---
Author Organization [facility] Address [address] [facility] [address] [place] [address] Phone Care Team Providers Care Barrel Header Name Role Phone Irvin Sainz NP Primary Care Provider Encounters Date Type Department Care Team Description 05/10/2025 9:45 AM CDT Office Visit [facility] Maternal- Medicine [address] [facility] 7th Floor [address] [place] [phone] Supervision of high-risk , unspecified trimester 05/10/2025 9:15 AM CDT - 05/10/2025 11:59 PM CDT Hospital Encounter [facility] - Ultrasound [address] [facility], 7th Floor, [address] [place] [address] Type 2 diabetes mellitus without complication, without long-term current use of insulin (HCC) (Primary Dx); Supervision of high-risk , unspecified trimester; Supervision of high-risk , first trimester Discharge Disposition: Discharge to home or self care 04/25/2025 Telephone [facility] Obstetrics and Gynecology [facility] [place] [address] Marcelina Lopez 04/24/2025 Telephone [facility] Ob[facility]etrics [facility]necology [facility] [place] [address] Marcelina Lopez 04/24/2025 Results Follow-Up [facility] Primary Care at [address] [address] Irvin Sainz NP hCG, blood, quantitative 04/24/2025 Telephone [facility] [place] [address] [place] [address] Anel Jiménez RN 04/23/2025 2:36 PM CDT - 04/23/2025 11:59 PM CDT Hospital Encounter [address] [address] Positive test Discharge Disposition: Discharge to home or self care 04/23/2025 2:45 PM CDT Lab [facility] Outpatient Lab at [address] [phone] 04/23/2025 Telephone [facility] [address] [place] [address] [address] [place] [address] Edith Guzman MD 04/23/2025 Orders Only [facility] Primary Care at [address] [phone] Irvin Sainz NP Positive test (Primary Dx) 04/16/2025 Telephone [facility] Primary Care at [address] [phone] Irvin Sainz NP 04/08/[address] [address] Anel Jiménez, KEREN 04/08/[address] [address] Anel Jiménez, KEREN 04/08/2025 2:00 PM CDT Office Visit [facility] Primary Care at [address] [phone] Irvin Sainz NP Type 2 diabetes mellitus with hyperglycemia, with long-term current use of insulin (HCC) (Primary Dx); Anxiety; Class 3 severe obesity due to excess calories with serious comorbidity and body mass index (BMI) of 45.0 to 49.9 in adult 04/05/2025 Telephone [facility] [address] [facility] [address] [place] [address] Yamilet Hathaway 04/04/2025 Telephone [facility] [address] [address] Anel Jiménez, KEREN 04/04/[address] [address] Anel Jiménez, KEREN 04/03/[address] [address] Anel Jiménez, KEREN 04/02/[address] [address] Anel Jiménez, KEREN 03/27/2025 Orders Only [facility] [address] [place] [address] [address] [place] [address] Tino Rose MD Mass of right axilla (Primary Dx) 03/27/2025 11:00 AM CDT Office Visit [facility] [address] [place] [address] [address] [place] [phone] Tino Rose MD Mass of right axilla 03/11/2025 Telephone [facility] Primary Care at [address] [phone] Irvin Sainz NP Med Refill 03/08/2025 Results Follow-Up [facility] Primary Care at [address] [phone] Irvin Sainz NP US Axillary Right Non-Breast 03/08/2025 1:55 PM CDT - 03/08/2025 11:59 PM CDT Hospital Encounter [address] [address] Mass of right axilla Discharge Disposition: Discharge to home or self care 02/27/2025 Orders Only [facility] Primary Care at [address] [phone] Irvin Sainz NP from Last 3 Months Allergies Active Allergy [...] OR FOR SHORTNESS OF BREATH 6.7 each 02/13/20 25 Active fluticasone propion-salmet Greta (ADVAIR [...] 1 tablet (14 mg total) by mouth early childhood education specialist before breakfast 90 tablet 1 01/22/20 25 025 Discontinued Active Problems Problem Noted Date Diagnosed Date Pre-existing type 2 diabetes mellitus during in first trimester 05/01/2025 Obesity complicating in [facility] r 05/01/2025 Supervision of high-risk , [facility] ter 05/01/2025 Overview (05/01/2025): SEROLOGIES NEEDED [] OB consult only, [] Co-management vs. [x] Full [facility] Care; [] Red Team [] Blue Team [...] [] MOC: [] Method of feeding: [] Procedure Analyst (specifically which provider): [] PP Depression Discussed: [...] months. Assessment & Plan (01/21/2025 9:29 AM STORE CONSULTANT): Updated labs ordered, has been tolerating Rybelsus--previous A1c x 09/2024 was 9.3. Assessment & Plan (11/19/2024 9:54 AM STORE CONSULTANT): Tolerating Rybelsus well, will repeat labs at follow up in 2 months. Assessment & Plan (10/05/2024 9:21 AM STORE CONSULTANT): Previous A1c 8.1%, overdue for labs and [...] daily. Assessment & Plan (11/19/2024 9:54 AM STORE CONSULTANT): Much improvement on the Sertraline 50 mg, will continue. Assessment & Plan (10/05/2024 9:18 AM STORE CONSULTANT): Not at goal. Will switch from Lexapro to Zoloft. Education provided. Assessment & Plan (03/07/2023 2:13 PM CDT): Stable on Lexapro 20 mg. Denies SI/HI Moderate episode of recurrent major depressive d isorder 03/07/2023 Assessment & Plan (10/05/2024 9:19 AM STORE CONSULTANT): As above. Assessment & Plan (02/14/2024 4:06 PM CDT): Stable on Lexapro 20 mg. Denies SI/HI Assessment & Plan (03/07/2023 2:13 PM CDT): Stable on Lexapro 20 mg. Denies SI/HI Mild intermittent asthma without complication Assessment & Plan (01/21/2025 9:28 AM STORE CONSULTANT): Has been needing prn inhaler 2-3x/day. Discussed maintenance inhaler, will start daily Advair. Education provided. Assessment & Plan (10/05/2024 9:19 AM STORE CONSULTANT): Stable, uses prn inhaler approximately very infrequently. [...] recommended Assessment & Plan (01/21/2025 9:28 AM STORE CONSULTANT): Down 6 lbs since last visit. Healthy, low carbohydrate lifestyle and exercise for 150min/week recommended. Assessment & Plan (11/19/2024 9:54 AM STORE CONSULTANT): Healthy, low carbohydrate lifestyle and exercise for 150min/week recommended Assessment & Plan (10/05/2024 9:19 AM STORE CONSULTANT): Healthy, low carbohydrate lifestyle and exercise for 150min/week recommended. Assessment & Plan (02/14/2024 4:06 PM CDT): Healthy, low carbohydrate lifestyle and exercise for 150min/week recommended Assessment & Plan (03/07/2023 2:13 PM CDT): Healthy, low carbohydrate lifestyle and exercise for 150min/week recommended Estimated Date of Delivery Comme nts Yes 01/03/2026 Based on Ultraso und Immunizations Immunization Administration Dates Next Due Influenza, [...] CDT Gender Identity Female 01/23/2024 4:53 PM STORE CONSULTANT Sexual Orientation Straight 01/23/2024 4: 53 PM STORE CONSULTANT Last Filed Vital Signs Vital Sign Reading Time Taken Comments Blood Pressure 139/88 05/10/2025 10:13 AM CDT Pulse 99 05/10/2025 10:08 AM CDT Temperature 36.8 C (98.2 F) 04/08/2025 1:38 PM CDT Respiratory Rate 28 12/10/2024 11:0 7 AM STORE CONSULTANT Oxygen Saturation 100% 05/10/2025 10: 08 AM CDT Inhaled Oxygen Concentration - - Weight 124.4 kg (274 lb 3.2 oz) 025 10:08 AM CDT Height 157.5 cm (5' 2) 05/10/2025 10:0 8 AM CDT Body Mass Index 50.15 05/10/2025 10:08 AM CDT Plan of Treatment Not on file Procedures [...] right axilla EGFR Routine 01/21/2025 9:27 AM STORE CONSULTANT Type 2 diabetes mellitus with hyperglycemia, without long-term current use of insulin (HCC) LIPID PANEL Routine 01/21/2025 9:27 AM STORE CONSULTANT Type 2 diabetes mellitus with hyperglycemia, without long-term current use of insulin (HCC) HEPATITIS C ANTIBODY Routine 10/05/2024 9:38 AM STORE CONSULTANT Encounter for hepatitis C screening test for low risk patient ALBUMIN CREATININE RATIO, URINE Routine 10/05/2024 9:38 AM STORE CONSULTANT Type 2 diabetes mellitus with hyperglycemia, without [...] I discussed thesefindings with the patient today. Patricia Jones MD IMG OB US PROCEDURES [...] 04/23/2025 8:08 PM CDT us Irvin Sainz NP LAB BLOOD ORDERABLES Edited Resu lt - Final [facility] [address] Department [place] [address] * (ABNORMAL) POCT hemoglobin A1c (04/08/2025 1:56 [...] by: Scott Monroe M.D. us Irvin Sainz CUSTOM PROTECTION OFFICER IMG US PROCEDURES Final Result * eGFR (01/21/2025 9:27 AM STORE CONSULTANT) eGFR >90 >=60 mL/min/1. 73 m2 Comment: [...] last reviewed 2021. Blood 01/21/2025 9:27 AM STORE CONSULTANT 01/21/2025 9:35 PM STORE CONSULTANT us Irvin Sainz NP LAB BLOOD ORDERABLES Final Resul t FRANCISCO J YUN [address] [address] Department [place] [address] * (ABNORMAL) Lipid panel (01/21/2025 9:27 AM STORE CONSULTANT) Cholesterol 219(H) 30 - 199 mg/dL Comment: [...] 2018. HDL 52 >=40 mg/dL FRANCISCO J Comment: Interpretive Data Ages < or = [...] LDL, calculated 139(H) <=129 mg/dL FRANCISCO J Comment: Interpretive Data Ages < or = [...] 2004;110:227 3. Rashad Gardner al. BRAD Cardiol. 2020 March 28;5(5):540-548. doi: 10.1001/jamacardio.2020.0013 Current Interpretive Data was last revised on 2024. Non-HDL Cholesterol 167 mg/dL FRANCISCO J Comment: Interpretive Data Ages < or = [...] last revised on 2018. Chol/HDL ratio 4 [facility] Blood 01/21/2025 9:2 7 AM STORE CONSULTANT 01/21/2025 9:18 PM STORE CONSULTANT us Irvin Sainz NP LAB BLOOD ORDERABLES Final Resul t Performing Organization Address [facility] de Phone Number [facility] [address] [email or web address] [address] * Hepatitis C antibody Blood (10/05/2024 9:38 AM STORE CONSULTANT) Hep C Ab Nonreactive Nonreactive Comment: Interpretive [...] revised on 2020. Blood 10/05/2024 9:38 AM STORE CONSULTANT 10/05/2024 3:07 PM STORE CONSULTANT us Irvin Sainz NP LAB MICROBIOLOGY - GENERAL ORDER IMER Final Result Performing Organization Address [facility] Co de Phone Number [facility] [address] [email or web address] [address] * Albumin Creatinine Ratio, Urine (10/05/2024 9:38 AM STORE CONSULTANT) Albumin Ur 24.3 mg/L Comment: Interpretive Data No reference range established. Current interpretive data was last revised 2019. Creatinine Ur 207.8 mg/dL FRANCISCO J Comment: Interpretive Data No reference range established. Current interpretive data was last revised 2019. Albumin Creatinine Ratio, Ur 12 1 - 29 mg/g FRANCISCO J YUN Urine 10/05/2024 9:38 AM STORE CONSULTANT 10/05/2024 3:07 PM STORE CONSULTANT us Irvin Sainz CUSTOM PROTECTION OFFICER LAB URINE ORDERABLES Final Resul t [place] [address] [address] Department [place] [address] from Last 3 Months or Most Recently Relevant to Health Maintenance Insurance [employer] Care Teams Barrel Header Relationship Specialty Start Date End Date Irvin Sainz NP [address] [place] [address] PCP - General Family Medicine 03/07/23
[2025-05-11 15:31] VITALS: BP 152/79; PULSE 98; RESP 18; O2SAT 99
[2025-05-11 15:34] VITALS: TEMP 36.9
[2025-05-11 15:56] LABS: Basophils Absolute Auto 0.1 K/mm3 (0.0-0.1); Basophils Percent Auto 0.4 % (0.2-1.2); Eosinophils Absolute Auto 0.2 K/mm3 (0-0.3); Eosinophils Percent Auto 1.4 % (0-4.4); Hematocrit 40.6 % (37.0-47.0); Hemoglobin 12.9 g/dL (12.0-15.0); Immature Granulocyte Absolute 0.04 K/mm3 (0.00-0.031); Immature Granulocyte Percent A 0.3 % (0-0.5); Lymphocytes Absolute Auto 3.11 K/mm3 (0.9-3.2); Lymphocytes Percent Auto 22.1 % (18.3-44.2); Mean Corpuscular HGB Conc 31.8 g/dl (32-36); Mean Corpuscular Hemoglobin 24.6 pg (26-34); Mean Corpuscular Volume 77.3 fl (80-100); Mean Platelet Volume 9.7 fl (7.4-10.4); Monocytes Absolute Auto 0.6 K/mm3 (0.1-0.6); Neutrophils Absolute Auto 10.1 K/mm3 (1.3-6.7); Neutrophils Percent Auto 71.8 % (45.5-73.1); Platelet Count Result 347 k/mm3 (150-375); Red Blood Count 5.25 M/mm3 (4.2-5.4); Red Cell Distribution Width 15.5 % (11.5-14.5); White Blood Count 14.1 K/mm3 (4.5-10.0)
--- OUTSIDE RECORDS SUMMARY | 2025-05-11 15:57 | XMS_ITS | Encounter Summary ---
Author Organization [facility] Address [address] [place] [address] Phone Care Team Providers Care Motor Inspection Mechanic Name Role Phone Slime Dillon NP Primary Care Provider [phone] Reason for Referral * Diagnostic Imaging (Routine) - Pending Review Specialty Diagnoses / Procedures Referred By Contstewart t Referred To Contact Diagnoses Supervision of high-risk , unspecified trimester Procedures US Ob Limited Slime Becker MD [address] [facility] [id number] [place] [address] Phone: tel: fax: [facility] (All Locations) Referral ID Status Reason Start Date Expiration Date V isits Requested Visits Authorized [id number] Pending Review 05/10/2025 06/09/2026 1 1 Reason for Visit * Reason Comments High Risk Gestation * Consultation (Routine) - Closed Specialty Diagnoses / Procedures Referred By Contstewart t Referred To Contact Maternal and Medicine Diagnoses Supervision of high-risk , unspecified trimester Patricia Jones MD [address] [facility] [address] [place] [address] Phone: tel: fax: [facility] (All Locations) Referral ID Status Reason Start Date Expiration Date V isits Requested Visits Authorized [id number] Closed Specialty Services Required 04/25/2025 05/25/2026 1 1 Encounter Details Date Type Department Care Team (Marta henry Contact Info) Description 05/10/2025 9:45 AM CDT Office Visit [facility] Maternal- Medicine [address] [facility] 7th Floor [address] [place] [address] Supervision of high-risk , unspecified [...] CDT Gender Identity Female 01/23/2024 4:53 PM TAX ACCOUNTANT Sexual Orientation Straight 01/23/2024 4: 53 PM TAX ACCOUNTANT documented as of this encounter Last Filed [...] 05/10/2025 documented in this encounter Care Teams Motor Inspection Mechanic Relationship Specialty Start Date End Date Slime Dillon NP [address] [facility] [address] [place] [address] PCP - General Family Medicine 03/07/23 documented as of this encounter
--- OUTSIDE RECORDS SUMMARY | 2025-05-11 15:57 | XMS_ITS | Clinical Summary ---
Author Organization [facility] Address [address] [facility] [address] [place] [address] Phone Care Team Providers Care Computational Mathematician Name Role Phone Irvin Sainz NP Primary Care Provider [phone] Allergies Active Allergy Reactions Criticality Noted Date [...] 1 tablet (14 mg total) by mouth human resources benefits assistant before breakfast 90 tablet 1 01/22/20 025 [...] [] MOC: [] Method of feeding: [] Rotating Equipment Engineer (specifically which provider): [] PP Depression Discussed: [...] months. Assessment & Plan (01/21/2025 9:29 AM PULMONARY DISEASE SPECIALIST): Updated labs ordered, has been tolerating Rybelsus--previous A1c x 09/2024 was 9.3. Assessment & Plan (11/19/2024 9:54 AM PULMONARY DISEASE SPECIALIST): Tolerating Rybelsus well, will repeat labs at follow up in 2 months. Assessment & Plan (10/05/2024 9:21 AM PULMONARY DISEASE SPECIALIST): Previous A1c 8.1%, overdue for labs and [...] daily. Assessment & Plan (11/19/2024 9:54 AM PULMONARY DISEASE SPECIALIST): Much improvement on the Sertraline 50 mg, will continue. Assessment & Plan (10/05/2024 9:18 AM PULMONARY DISEASE SPECIALIST): Not at goal. Will switch from Lexapro to Zoloft. Education provided. Assessment & Plan (03/07/2023 2:13 PM CDT): Stable on Lexapro 20 mg. Denies SI/HI Moderate episode of recurrent major depressive d isorder 03/07/2023 Assessment & Plan (10/05/2024 9:19 AM PULMONARY DISEASE SPECIALIST): As above. Assessment & Plan (02/14/2024 4:06 PM CDT): Stable on Lexapro 20 mg. Denies SI/HI Assessment & Plan (03/07/2023 2:13 PM CDT): Stable on Lexapro 20 mg. Denies SI/HI Mild intermittent asthma without complication Assessment & Plan (01/21/2025 9:28 AM PULMONARY DISEASE SPECIALIST): Has been needing prn inhaler 2-3x/day. Discussed maintenance inhaler, will start daily Advair. Education provided. Assessment & Plan (10/05/2024 9:19 AM PULMONARY DISEASE SPECIALIST): Stable, uses prn inhaler approximately very infrequently. [...] recommended Assessment & Plan (01/21/2025 9:28 AM PULMONARY DISEASE SPECIALIST): Down 6 lbs since last visit. Healthy, low carbohydrate lifestyle and exercise for 150min/week recommended. Assessment & Plan (11/19/2024 9:54 AM PULMONARY DISEASE SPECIALIST): Healthy, low carbohydrate lifestyle and exercise for 150min/week recommended Assessment & Plan (10/05/2024 9:19 AM PULMONARY DISEASE SPECIALIST): Healthy, low carbohydrate lifestyle and exercise for [...] Description 05/10/2025 9:45 AM CDT Office Visit [facility] Maternal- Medicine [address] [facility] Health 7th Floor [address] [place] [phone] Supervision of high-risk , unspecified trimester 05/10/2025 9:15 AM CDT - 05/10/2025 11:59 PM CDT Hospital Encounter [facility] Outpatient [facility] - Ultrasound [address] [facility] [facility], 7th Floor, [address] [place], [place] [id number] Type 2 diabetes mellitus without complication, without long-term current use of insulin (HCC) (Primary Dx); Supervision of high-risk , unspecified trimester; Supervision of high-risk , first trimester Discharge Disposition: Discharge to home or self care 04/25/2025 Telephone [facility] Obstetrics and Gynecology [address] [place] [address] Trell Lopeza 04/24/2025 Telephone [facility] Obstetrics and Gynecology Critical access hospital1 [place] [address] LopezMarcelina 04/24/2025 Results Follow-Up [facility] Primary Care at [address] [address] Irvin Sainz NP hCG, blood, quantitative 04/24/2025 Telephone [facility] 1 [place] [address] Anel Jiménez RN 04/23/2025 2:45 PM CDT Lab [facility] Outpatient Lab at [address] [address] 04/23/2025 2:36 PM CDT - 04/23/2025 11:59 PM CDT Hospital Encounter [address] [address] Positive test Discharge Disposition: Discharge to home or self care 04/23/2025 Telephone [facility] [address] [facility] [address] [place] [address] Edith Guzman MD 04/23/[address] [facility] Primary Care at [address] [address] Irvin Sainz NP Positive test (Primary Dx) 04/16/2025 Telephone [facility] Primary Care at [address] [address] Irvin Sainz NP 04/08/2025 2:00 PM CDT Office Visit [facility] Primary Care at [address] [address] Irvin Sainz NP Type 2 diabetes mellitus with hyperglycemia, with long-term current use of insulin (HCC) (Primary Dx); Anxiety; Class 3 severe obesity due to excess calories with serious comorbidity and body mass index (BMI) of 45.0 to 49.9 in adult 04/08/[address] [address] Anel Jiménez, RN 04/08/2025 Telephone [facility] Imaging [address] [address] Anel Jiménez, RN 04/05/2025 Telephone [place] [address] [place] [address] Yamilet Hathaway 04/04/[address] [address] Anel Jiménez, RN 04/04/[address] [address] Anel Jiménez, RN 04/03/[address] [address] Anel Jiménez, RN 04/02/[address] [address] Anel Jiménez, KEREN 03/27/2025 11:00 AM CDT Office Visit [address], [place] [address] Tino Rose MD Mass of right axilla 03/27/2025 Orders Only [address] [address] Tino Rose MD Mass of right axilla (Primary Dx) 03/11/[address] [facility] Primary Care at [address] [phone] Irvin Sainz NP Med Refill 03/08/2025 1:55 PM CDT - 03/08/2025 11:59 PM CDT Hospital Encounter [address] [address] Mass of right axilla Discharge Disposition: Discharge to home or self care 03/08/2025 Results Follow-Up [facility] Primary Care at [address] [phone] Irvin Sainz NP US Axillary Right Non-Breast 02/27/[address] [facility] Primary Care at [address] [address] Irvin Sainz NP from Last [...] CDT Gender Identity Female 01/23/2024 4:53 PM PULMONARY DISEASE SPECIALIST Sexual Orientation Straight 01/23/2024 4: 53 PM PULMONARY DISEASE SPECIALIST Obstetrics History Para Term AB IAB SAB [...] PCP records for DM management are in [facility]. Most recent visit was 04/08/25. Last Filed Vital Signs Vital Sign Reading Time Taken Comments Blood Pressure 139/88 05/10/2025 10:13 AM CDT Pulse 99 05/10/2025 10:08 AM CDT Temperature 36.8 C (98.2 F) 04/08/2025 1:38 PM CDT Respiratory Rate 28 12/10/2024 11:0 7 AM PULMONARY DISEASE SPECIALIST Oxygen Saturation 100% 05/10/2025 10: 08 AM [...] right axilla EGFR Routine 01/21/2025 9:27 AM PULMONARY DISEASE SPECIALIST Type 2 diabetes mellitus with hyperglycemia, without long-term current use of insulin (HCC) LIPID PANEL Routine 01/21/2025 9:27 AM PULMONARY DISEASE SPECIALIST Type 2 diabetes mellitus with hyperglycemia, without long-term current use of insulin (HCC) HEPATITIS C ANTIBODY Routine 10/05/2024 9:38 AM PULMONARY DISEASE SPECIALIST Encounter for hepatitis C screening test for low risk patient ALBUMIN CREATININE RATIO, URINE Routine 10/05/2024 9:38 AM PULMONARY DISEASE SPECIALIST Type 2 diabetes mellitus with hyperglycemia, without [...] 04/23/2025 8:08 PM CDT us Irvin Sainz REEL FILM INSPECTOR LAB BLOOD ORDERABLES Edited Resu lt - Final [place] [address] [place] [address] * (ABNORMAL) POCT hemoglobin A1c (04/08/2025 1:56 [...] by: Scott Monroe M.D. us Irvin Sainz REEL FILM INSPECTOR IMG US PROCEDURES Final Result * eGFR (01/21/2025 9:27 AM PULMONARY DISEASE SPECIALIST) eGFR >90 >=60 mL/min/1. 73 m2 Comment: [...] last reviewed 2021. Blood 01/21/2025 9:27 AM PULMONARY DISEASE SPECIALIST 01/21/2025 9:35 PM PULMONARY DISEASE SPECIALIST us Irvin Sainz NP LAB BLOOD ORDERABLES Final Resul t [place] [address] [address] [address] [place] [address] * (ABNORMAL) Lipid panel (01/21/2025 9:27 AM PULMONARY DISEASE SPECIALIST) Cholesterol 219(H) 30 - 199 mg/dL Comment: [...] mg/dL High: >160 mg/dL Calculated using the Rahsad LDL-C estimating equation. This equation was implemented [...] FRANCISCO J YUN Blood 01/21/2025 9:27 AM PULMONARY DISEASE SPECIALIST 01/21/2025 9:18 PM PULMONARY DISEASE SPECIALIST Irvin Sainz REEL FILM INSPECTOR LAB BLOOD ORDERABLES Final Resul t [place] [address] [address] [place] [address] * Hepatitis C antibody Blood (10/05/2024 9:38 AM PULMONARY DISEASE SPECIALIST) Pathologist [facility] Hep C Ab Nonreactive Nonreactive Comment: Interpretive [...] revised on 2020. Blood 10/05/2024 9:38 AM PULMONARY DISEASE SPECIALIST 10/05/2024 3:07 PM PULMONARY DISEASE SPECIALIST us Irvin Sainz NP LAB MICROBIOLOGY - GENERAL ORDER IMER Final Result Performing Organization Address [facility] de Phone Number FRANCISCO J Y[address] [id number] [address] [employer] [place] [address] * Albumin Creatinine Ratio, Urine (10/05/2024 9:38 AM PULMONARY DISEASE SPECIALIST) Pathologist [facility] Albumin Ur 24.3 mg/L Comment: Interpretive Data No reference range established. Current interpretive data was last revised 2019. Creatinine Ur 207.8 mg/dL [facility] Comment: Interpretive Data No reference range established. Current interpretive data was last revised 2019. Albumin Creatinine Ratio, Ur 12 1 - 29 mg/g [facility] Urine 10/05/2024 9:38 AM PULMONARY DISEASE SPECIALIST 10/05/2024 3:07 PM PULMONARY DISEASE SPECIALIST us Irvin Sainz NP LAB URINE ORDERABLES Final Resul t Performing Organization Address [facility] de Phone Number FRANCISCO J YUN [address] [address] [employer] [place] [address] from Last 3 Months or Most Recently Relevant to Health Maintenance Insurance [employer] Care Teams Computational Mathematician Relationship Specialty Start Date End Date Irvin Sainz NP [address] [facility] [address] [place] [address] PCP - General Family Medicine 03/07/23
--- OUTSIDE RECORDS SUMMARY | 2025-05-11 15:57 | XMS_ITS | Referral Summary ---
Author Organization [facility] Address [address] [facility] [address] [place] [address] Phone Care Team Providers Care Poultry Eviscerator Name Role Phone Irvin Sainz NP Primary Care Provider [phone] Encounters Date Type Department Care Team Description 05/10/2025 9:45 AM CDT [facility] Maternal- Medicine [address] [facility] Health 7th Floor [address] [place] [phone] Supervision of high-risk , unspecified trimester 05/10/2025 9:15 AM CDT - 05/10/2025 11:59 PM CDT Hospital Encounter [facility] Outpatient [facility] - Ultrasound [address] [facility], 7th Floor, [address] [place] [facility] [place] [place] [address] Type 2 diabetes mellitus without complication, without long-term current use of insulin (HCC) (Primary Dx); Supervision of high-risk , unspecified trimester; Supervision of high-risk , first trimester Discharge Disposition: Discharge to home or self care 04/25/2025 Telephone [facility] Obstetrics and Gynecology [facility] [place] [address] Marcelina Lopez 04/24/2025 Telephone [facility] Obstetrics [facility]cology [facility] [place] [address] Marcelina Lopez 04/24/2025 Results Follow-Up [facility] Primary Care at [address] [address] Irvin Sainz NP hCG, blood, quantitative 04/24/2025 Telephone [facility] [place] 1 [place] [address] Anel Jiménez RN 04/23/2025 2:36 PM CDT - 04/23/2025 11:59 PM CDT Hospital Encounter [address] [address] Positive test Discharge Disposition: Discharge to home or self care 04/23/2025 2:45 PM CDT Lab [facility] Outpatient Lab at [address] [phone] 04/23/2025 Telephone [facility] [address] [place] [address] [address] [place] [address] Edith Guzman MD 04/23/2025 Orders Only [facility] Primary Care at [address] [phone] Irvin Sainz NP Positive test (Primary Dx) 04/16/2025 Telephone [facility] Medical [facility] Primary Care at [address] [phone] Irvin Sainz NP 04/08/[address] [address] Anel Jiménez, KEREN 04/08/[address] [address] Anel Jiménez, KEREN 04/08/2025 2:00 PM CDT Office Visit [facility] Primary Care at [address] [phone] Irvin Sainz NP Type 2 diabetes mellitus with hyperglycemia, with long-term current use of insulin (HCC) (Primary Dx); Anxiety; Class 3 severe obesity due to excess calories with serious comorbidity and body mass index (BMI) of 45.0 to 49.9 in adult 04/05/2025 Telephone [facility] [address] [facility] [address] [place] [address] Yamilet Hathaway 04/04/2025 Telephone [facility] [address] [address] Anel Jiménez, KEREN 04/04/[address] [address] Anel Jiménez, KEREN 04/03/[address] [address] Anel Jiménez, KEREN 04/02/[address] [address] Anel Jiménez, KEREN 03/27/2025 Orders Only [facility] [address] [place] [address] [address] [place] [address] Tino Rose MD Mass of right axilla (Primary Dx) 03/27/2025 11:00 AM CDT Office Visit [facility] [address] [place] [address] [address] [place] [address] Tino Rose MD Mass of right axilla 03/11/2025 Telephone [facility] Primary Care at [address] [phone] Irvin Sainz NP Med Refill 03/08/2025 Results Follow-Up [facility] Primary Care at [address] [phone] Irvin Sainz NP US Axillary Right Non-Breast 03/08/2025 1:55 PM CDT - 03/08/2025 11:59 PM CDT Hospital Encounter [address] [address] Mass of right axilla Discharge Disposition: Discharge to home or self care 02/27/2025 Orders Only [facility] Primary Care at [address] [address] Irvin Sainz NP from Last [...] tablet (14 mg total) by mouth early years teacher before breakfast 90 tablet 1 01/22/20 25 025 Discontinued Active Problems Problem Noted Date Diagnosed Date Pre-existing type 2 diabetes mellitus during in first trimester 05/01/2025 Obesity complicating in [facility] 05/01/2025 Supervision of high-risk , [facility] 05/01/2025 Overview (05/01/2025): SEROLOGIES NEEDED [] OB consult only, [] Co-management vs. [x] Full [facility] Care; [] Red Team [] Blue Team Referring Provider: Self Referral [] or Medicare Insurance [x] Dating Criteria: LMP 02/21/25 with AHSA 11/28/25 [] Labs: Rh [ ], Ab [...] [] MOC: [] Method of feeding: [] Podiatry Professor (specifically which provider): [] PP Depression Discussed: [...] months. Assessment & Plan (01/21/2025 9:29 AM CREATIVE RECRUITER): Updated labs ordered, has been tolerating Rybelsus--previous A1c x 09/2024 was 9.3. Assessment & Plan (11/19/2024 9:54 AM CREATIVE RECRUITER): Tolerating Rybelsus well, will repeat labs at follow up in 2 months. Assessment & Plan (10/05/2024 9:21 AM CREATIVE RECRUITER): Previous A1c 8.1%, overdue for labs and [...] daily. Assessment & Plan (11/19/2024 9:54 AM CREATIVE RECRUITER): Much improvement on the Sertraline 50 mg, will continue. Assessment & Plan (10/05/2024 9:18 AM CREATIVE RECRUITER): Not at goal. Will switch from Lexapro to Zoloft. Education provided. Assessment & Plan (03/07/2023 2:13 PM CDT): Stable on Lexapro 20 mg. Denies SI/HI Moderate episode of recurrent major depressive d isorder 03/07/2023 Assessment & Plan (10/05/2024 9:19 AM CREATIVE RECRUITER): As above. Assessment & Plan (02/14/2024 4:06 PM CDT): Stable on Lexapro 20 mg. Denies SI/HI Assessment & Plan (03/07/2023 2:13 PM CDT): Stable on Lexapro 20 mg. Denies SI/HI Mild intermittent asthma without complication Assessment & Plan (01/21/2025 9:28 AM CREATIVE RECRUITER): Has been needing prn inhaler 2-3x/day. Discussed maintenance inhaler, will start daily Advair. Education provided. Assessment & Plan (10/05/2024 9:19 AM CREATIVE RECRUITER): Stable, uses prn inhaler approximately very infrequently. [...] recommended Assessment & Plan (01/21/2025 9:28 AM CREATIVE RECRUITER): Down 6 lbs since last visit. Healthy, low carbohydrate lifestyle and exercise for 150min/week recommended. Assessment & Plan (11/19/2024 9:54 AM CREATIVE RECRUITER): Healthy, low carbohydrate lifestyle and exercise for 150min/week recommended Assessment & Plan (10/05/2024 9:19 AM CREATIVE RECRUITER): Healthy, low carbohydrate lifestyle and exercise for [...] CDT Gender Identity Female 01/23/2024 4:53 PM CREATIVE RECRUITER Sexual Orientation Straight 01/23/2024 4: 53 PM CREATIVE RECRUITER Last Filed Vital Signs Vital Sign Reading Time Taken Comments Blood Pressure 139/88 05/10/2025 10:13 AM CDT Pulse 99 05/10/2025 10:08 AM CDT Temperature 36.8 C (98.2 F) 04/08/2025 1:38 PM CDT Respiratory Rate 28 12/10/2024 11:0 7 AM CREATIVE RECRUITER Oxygen Saturation 100% 05/10/2025 10: 08 AM [...] right axilla EGFR Routine 01/21/2025 9:27 AM CREATIVE RECRUITER Type 2 diabetes mellitus with hyperglycemia, without long-term current use of insulin (HCC) LIPID PANEL Routine 01/21/2025 9:27 AM CREATIVE RECRUITER Type 2 diabetes mellitus with hyperglycemia, without long-term current use of insulin (HCC) HEPATITIS C ANTIBODY Routine 10/05/2024 9:38 AM CREATIVE RECRUITER Encounter for hepatitis C screening test for low risk patient ALBUMIN CREATININE RATIO, URINE Routine 10/05/2024 9:38 AM CREATIVE RECRUITER Type 2 diabetes mellitus with hyperglycemia, without [...] BLOOD ORDERABLES Edited Resu lt - Final [facility] [id number] [address] Department [place] [address] * (ABNORMAL) POCT hemoglobin A1c [...] by: Scott Monroe M.D. us Irvin Sainz PAYER SPECIALIST IMG US PROCEDURES Final Result * eGFR (01/21/2025 9:27 AM CREATIVE RECRUITER) eGFR >90 >=60 mL/min/1. 73 m2 Comment: [...] last reviewed 2021. Blood 01/21/2025 9:27 AM CREATIVE RECRUITER 01/21/2025 9:35 PM CREATIVE RECRUITER us Irvin Sainz NP LAB BLOOD ORDERABLES Final Resul t [place] J Y[address] [address] [address] Department [place] [address] * (ABNORMAL) Lipid panel (01/21/2025 9:27 AM CREATIVE RECRUITER) Cholesterol 219(H) 30 - 199 mg/dL Comment: [...] last revised on 2018. Chol/HDL ratio 4 [facility] Blood 01/21/2025 9:2 7 AM CREATIVE RECRUITER 01/21/2025 9:18 PM CREATIVE RECRUITER us Irvin Sainz NP LAB BLOOD ORDERABLES Final Resul t Performing Organization Address [facility] de Phone Number [facility] [phone] [address] [employer] [place] [address] * Hepatitis C antibody Blood (10/05/2024 9:38 AM CREATIVE RECRUITER) Hep C Ab Nonreactive Nonreactive Comment: Interpretive [...] revised on 2020. Blood 10/05/2024 9:38 AM CREATIVE RECRUITER 10/05/2024 3:07 PM CREATIVE RECRUITER us Irvin Sainz NP LAB MICROBIOLOGY - GENERAL ORDER IMER Final Result Performing Organization Address [facility] Co de Phone Number [facility] [address] [address] [place] [address] * Albumin Creatinine Ratio, Urine (10/05/2024 9:38 AM CREATIVE RECRUITER) Albumin Ur 24.3 mg/L Comment: Interpretive Data No reference range established. Current interpretive data was last revised 2019. Creatinine Ur 207.8 mg/dL FRANCISCO J Comment: Interpretive Data No reference range established. Current interpretive data was last revised 2019. Albumin Creatinine Ratio, Ur 12 1 - 29 mg/g FRANCISCO J YUN Urine 10/05/2024 9:38 AM CREATIVE RECRUITER 10/05/2024 3:07 PM CREATIVE RECRUITER us Irvin Sianz PAYER SPECIALIST LAB URINE ORDERABLES Final Resul t [place] [address] [address] [address] Department [place] [address] from Last 3 Months or Most Recently Relevant to Health Maintenance Insurance [employer] Care Teams Poultry Eviscerator Relationship Specialty Start Date End Date Irvin Sainz NP [address] [place] [address] PCP - General Family Medicine 03/07/23
--- OUTSIDE RECORDS SUMMARY | 2025-05-11 15:57 | XMS_ITS | Encounter Summary ---
Author Organization [facility] Address [address] [place] [address] Care Team Providers Care Anger Control Counselor Name Role Phone Slime Dillon NP Primary Care Provider [phone] Encounter Details Date Type Department Care Team (Latest Contact Info) Description 04/24/2025 Results Follow-Up [facility] Primary Care at [address] [address] Slime Dillon NP [address] [place] [address] [address] [place] [address] hCG, blood, quantitative Social History [...] CDT Gender Identity Female 01/23/2024 4:53 PM DIRECTOR OF IN SERVICE EDUCATION Sexual Orientation Straight 01/23/2024 4: 53 PM DIRECTOR OF IN SERVICE EDUCATION documented as of this encounter Plan of Treatment Not on file documented as of this encounter Visit Diagnoses Not on filedocumented in this encounter Care Teams Anger Control Counselor Relationship Specialty Start Date End Date Slime Dillon NP [address] [address] PCP - General Family Medicine 03/07/23 documented as of this encounter
--- OUTSIDE RECORDS SUMMARY | 2025-05-11 15:57 | XMS_ITS | Encounter Summary ---
Author Organization [facility] Healthcare Address [address] [place] [address] Care Team Providers Care Platform Consultant Name Role Phone Slime Dillon NP Primary Care Provider [phone] Encounter Details Date Type Department Care Team (Late st Contact Info) Description 02/05/2025 Telephone [facility] [address] [place] [address] Anel Jiménez RN Social History Tobacco Use [...] CDT Gender Identity Female 01/23/2024 4:53 PM FORENSIC MANAGER Sexual Orientation Straight 01/23/2024 4: 53 PM FORENSIC MANAGER documented as of this encounter Plan of Treatment Not on file documented as of this encounter Visit Diagnoses Not on filedocumented in this encounter Care Teams Platform Consultant Relationship Specialty Start Date End Date Slime Dillon NP [address] [facility] [address] [place], [place] [id number] PCP - General Family Medicine 03/07/23 documented as of this encounter
--- OUTSIDE RECORDS SUMMARY | 2025-05-11 15:58 | XMS_ITS | Encounter Summary ---
Author Organization [facility] Healthcare Address [address] [place] [address] Care Team Providers Care Group Sales Representative Name Role Phone Slime Dillon NP Primary Care Provider [phone] Reason for Referral * Diagnostic Imaging (Routine) - Pending Review Specialty Diagnoses / Procedures Referred By Jessica antonio Referred To Contact Diagnoses Type 2 diabetes mellitus without complication, without long-term current use of insulin (HCC) Supervision of high-risk , first trimester Procedures US Ob Limited Patricia Jones MD [address] [address] Phone: tel: fax: [facility] (All Locations) Referral ID Status Reason Start Date Expiration Date V isits Requested Visits Authorized [id number] Pending Review 05/10/2025 06/09/2026 1 1 * Diagnostic Imaging (Routine) - Closed Specialty Diagnoses / Procedures Referred By Jessica antonio Referred To Contact Diagnoses Supervision of high-risk , unspecified trimester Procedures US Ob Limited Patricia Jones MD [address] [address] Phone: tel: fax: [facility] (All Locations) Referral ID Status Reason Start Date Expiration Date Visits Re quested Visits Authorized [id number] Closed 04/25/2025 05/25/2026 1 1 Reason for Visit * Diagnostic Imaging (Routine) - Closed Specialty Diagnoses / Procedures Referred By Contac t Referred To Contact Diagnoses Supervision of high-risk , unspecified trimester Procedures US Ob Limited Patricia Jones MD [address] [facility] [address] [place] [address] Phone: tel: fax: [facility] (All Locations) Referral ID Status Reason Start Date Expiration Date Visits Re quested Visits Authorized [id number] Closed 04/25/2025 05/25/2026 1 1 Encounter Details Date Type Department Care Team (Latest Contact Info) Description 05/10/2025 9:15 AM CDT - 05/10/2025 11:59 PM CDT Hospital Encounter [facility] - Ul[facility]ound [address] [facility], 7th Floor, [address] [facility] [place] [address] Type 2 diabetes mellitus without [...] CDT Gender Identity Female 01/23/2024 4:53 PM LUNCH TRUCK OPERATOR Sexual Orientation Straight 01/23/2024 4: 53 PM LUNCH TRUCK OPERATOR documented as of this encounter Functional Status [...] trimester documented in this encounter Care Teams Group Sales Representative Relationship Specialty Start Date End Date Slime Dillon NP [address] [facility] [address] [place] [address] PCP - General Family Medicine 03/07/23 documented as of this encounter
[2025-05-11 16:07] LABS: Alanine Aminotransferase 27 U/L (6-35); Albumin Level 4.3 g/dL (3.5-5.1); Alkaline Phosphatase 82 U/L (38-126); Anion Gap 10 mmol/L (4-12); Aspartate Amino Transferase 26 U/L (14-36); Bilirubin,Total 0.3 mg/dL (0.2-1.3); Blood Urea Nitrogen 8 mg/dL (7-17); Calcium 9.5 mg/dL (8.4-10.2); Carbon Dioxide 22 mmol/L (22-30); Chloride 107 mmol/L (98-107); Estimated CRCL calculation 126 ml/min; Estimated Glomerular Filt Rate > 60; Glucose 127 mg/dL (65-110); Potassium 3.6 mmol/L (3.4-5.0); Sodium 139 mmol/L (137-145); Total Protein 8.2 g/dL (6.3-8.2)
[2025-05-11 16:08] LABS: INR 0.9; Prothrombin Time 12.6 Seconds (11.1-14.7)
[2025-05-11 16:09] VITALS: BP 134/94; BP 148/105; PULSE 93; PULSE 97
[2025-05-11 16:10] VITALS: BP 158/113; PULSE 96
--- NOTE | 2025-05-11 16:21 | ED.PREGNANCY ---
HPI - General Chief complaint: Vaginal Bleeding Stated complaint: increased bleeding from ultrasound Time Seen by Provider: 05/11/25 15:23 Source: patient Mode of arrival: ambulatory Limitations: no limitations History of Present Illness HPI Narrative: This is a 30 year old female that presents to the ER for vaginal bleeding. Reports she is currently about 6 weeks . Has had mild bleeding/spotting since yesterday after having a transvaginal ultrasound. Reports mild pelvic cramping. Denies dysuria. Related Data Allergies Allergy/AdvReac Type Severity Reaction Status Date / Time Penicillins Allergy Mild Unknown Verified 05/11/25 15:31 Review of Systems Review of Systems: All systems reviewed & are unremarkable except as noted in HPI and below Exam Narrative: GENERAL: Well-appearing, well-nourished, and in no acute distress. HEAD: Normocephalic, atraumatic. EYES: EOMI. CHEST: Clear to auscultation. No respiratory distress. No wheezes rales or rhonchi HEART: Regular rate and rhythm. No murmur heard. Normal peripheral pulses. ABDOMEN: Soft, nontender, nondistended, normal active bowel sounds. EXTREMITIES: Normal range of motion. No edema. SKIN: Warm, dry, no rash. NEURO: No focal deficits. Alert and oriented x3. PSYCH: Normal mood and affect Course Course Emergency Course: Patient updated on her workup and agrees with plan of care Vital Signs Vital signs: Vital Signs Pulse Rate 98 05/11/25 15:31 Respiratory Rate 18 05/11/25 15:31 Blood Pressure 152/79 H 05/11/25 15:31 Pulse Oximetry 99 05/11/25 15:31 Oxygen Delivery Room Air 05/11/25 15:31 Temperature 98.5 F 05/11/25 15:34 Pulse Rate 96 05/11/25 16:10 Respiratory Rate 18 05/11/25 15:31 Blood Pressure 158/113 H 05/11/25 16:10 Pulse Oximetry 99 05/11/25 15:31 Oxygen Delivery Room Air 05/11/25 15:31 MDM - OB/Uterine Contractions MDM Narrative Medical decision making narrative: Patient presents the emergency department for spotting in early (6 weeks). Her vitals are stable. Hemoglobin is normal. Blood type is 0+. Quantitative beta hCG 2279. Reports she had an ultrasound yesterday at her OBs office which showed a gestational sac and pole, no heartbeat yet, could be normal in early . Instructed on pelvic rest. Will continue to monitor HCG. Follow up with her OB. She was given warnings to return to the ER Differential Diagnosis Differential diagnosis: Likely other (Threatened miscarriage, miscarriage) Lab Data Attestation: I reviewed the patient's lab results. 05/11/25 15:51 05/11/25 15:51 Labs: Lab Results 05/11/25 Range/Units 15:51 WBC 14.1 H (4.5-10.0) K/mm3 RBC 5.25 (4.2-5.4) M/mm3 Hgb 12.9 (12.0-15.0) g/dL Hct 40.6 (37.0-47.0) % MCV 77.3 L (80-100) fl MCH 24.6 L (26-34) pg MCHC 31.8 L (32-36) g/dl RDW 15.5 H (11.5-14.5) % Plt Count 347 (150-375) k/mm3 MPV 9.7 (7.4-10.4) fl Immature Gran % (Auto) 0.3 (0-0.5) % Neut % (Auto) 71.8 (45.5-73.1) % Lymph % (Auto) 22.1 (18.3-44.2) % Tarrant % (Auto) 4.0 (2.6-8.5) % Eos % (Auto) 1.4 (0-4.4) % Baso % (Auto) 0.4 (0.2-1.2) % Lymph # (Auto) 3.11 (0.9-3.2) K/mm3 Tarrant # (Auto) 0.6 (0.1-0.6) K/mm3 Eos # (Auto) 0.2 (0-0.3) K/mm3 Baso # (Auto) 0.1 (0.0-0.1) K/mm3 Abs Immat Gran (auto) 0.04 H (0.00-0.031) K/mm3 Absolute Neuts (auto) 10.1 H (1.3-6.7) K/mm3 Absolute Nucleated RBC 0.000 (0.0-0.012) K/mm3 Nucleated RBC % 0.0 (0.0-0.2) % PT 12.6 (11.1-14.7) Seconds INR 0.9 APTT 26.0 (22.3-36.8) Seconds Sodium 139 (137-145) mmol/L Potassium 3.6 (3.4-5.0) mmol/L Chloride 107 (98-107) mmol/L Carbon Dioxide 22 (22-30) mmol/L Anion Gap 10 (4-12) mmol/L BUN 8 (7-17) mg/dL Creatinine 0.73 (0.7-1.0) mg/dL Estim Creat Clear Calc 126 ml/min Estimated GFR > 60 (59 - ) Glucose 127 H (65-110) mg/dL Calcium 9.5 (8.4-10.2) mg/dL Total Bilirubin 0.3 (0.2-1.3) mg/dL AST 26 (14-36) U/L ALT 27 (6-35) U/L Alkaline Phosphatase 82 (38-126) U/L Total Protein 8.2 (6.3-8.2) g/dL Albumin 4.3 (3.5-5.1) g/dL Beta HCG, Quant 2279.40 mIU/ML Blood Type O Positive Antibody Screen Pending Screen Not Reportable Baby's Blood Type Not Reportable Baby's CURT Not Reportable Doses of RhIg Required 0 Critical Care Time Critical Care Time Critical Care Time: No Discharge Plan Discharge Clinical Impression: First-trimester bleeding Patient Disposition: Home Condition: Stable Instructions: Threatened Miscarriage (ED) Additional Instructions: Return to the ER if you experience fever, chest pain, shortness of breath, abdominal pain with nausea and vomiting, you are unable to keep down liquids or solids, you are soaking through a pad/hour, or any other symptoms that are concerning to you Continue vitamin. Tylenol as needed for discomfort. Pelvic rest, no tampons or sex. I have sent an order electronically for you to have your hormone rechecked in 2 days (Tuesday) at a lab of your choice Follow up with your OB Patient Language: Filipino Prescriptions: No Action ibuprofen 400 mg tablet 400 mg PO TID PRN (Reason: pain) Qty: 14 0RF hydrocodone-acetaminophen 5-325 mg tablet 1 tablet PO Q8H PRN (Reason: pain) Qty: 10 0RF Other Ambulatory Orders: Beta HCG Quantitative (Routine) Timeframe: 2 Days Location: Determined by Patient Ordered By: Chaparrita Melton Follow-up/Referrals: Santana,Slime Marroquin, MANAGER UTILITY [Primary Care Provider] -
== END 2025-05-11 16:46 | disposition home or self-care (01) ==
PROVIDERS: Emergency Provider Physician Assistant; PCP Nurse Practitioner Family
DX: O20.9 Hemorrhage in early pregnancy, unspecified (principal); Z3A.01 Less than 8 weeks gestation of pregnancy
CPT/HCPCS: 36415; 80053; 84702; 85025; 85461; 85610; 85730; 86850; 86900; 86901; 99283

== ENCOUNTER 2025-05-11 20:01 | Emergency (ER) | payer OTHER, SELFPAY ==
--- OUTSIDE RECORDS SUMMARY | 2025-05-11 20:04 | XMS_ITS | Encounter Summary ---
Author Organization [facility] Address [address] [place] [address] Phone Care Team Providers Care News Department Intern Name Role Phone Slime Dillon NP Primary Care Provider [phone] Reason for Referral * Diagnostic Imaging (Routine) - Pending Review Specialty Diagnoses / Procedures Referred By Contstewart t Referred To Contact Diagnoses Supervision of high-risk , unspecified trimester Procedures US Ob Limited Slime Becker MD [address] [facility] [id number] [place] [address] Phone: tel: fax: [facility] (All Locations) Referral ID Status Reason Start Date Expiration Date V isits Requested Visits Authorized [id number] Pending Review 05/10/2025 06/09/2026 1 1 Reason for Visit * Reason Comments High Risk Gestation * Consultation (Routine) - Closed Specialty Diagnoses / Procedures Referred By Contstewart t Referred To Contact Maternal and Medicine Diagnoses Supervision of high-risk , unspecified trimester Patricia Jones MD [address] [facility] 710 [place] [address] Phone: tel: fax: [facility] (All Locations) Referral ID Status Reason Start Date Expiration Date V isits Requested Visits Authorized [id number] Closed Specialty Services Required 04/25/2025 05/25/2026 1 1 Encounter Details Date Type Department Care Team (Marta henry Contact Info) Description 05/10/2025 9:45 AM CDT Office Visit Health system Maternal- Medicine [address] [facility] 7th Floor [address] [place] [address] Supervision of high-risk , unspecified [...] CDT Gender Identity Female 01/23/2024 4:53 PM CITY CARRIER Sexual Orientation Straight 01/23/2024 4: 53 PM CITY CARRIER documented as of this encounter Last Filed [...] 05/10/2025 documented in this encounter Care Teams News Department Intern Relationship Specialty Start Date End Date Slime Dillon NP [address] [facility] [address] [place] [address] PCP - General Family Medicine 03/07/23 documented as of this encounter
--- OUTSIDE RECORDS SUMMARY | 2025-05-11 20:04 | XMS_ITS | Referral Summary ---
Author Organization [facility] Address [address] [facility] [address] [place] [address] Phone Care Team Providers Care Police Detention Attendant Name Role Phone Irvin Sainz NP Primary Care Provider Encounters Date Type Department Care Team Description 05/10/2025 9:45 AM CDT Office Visit [facility] Maternal- Medicine [address] [facility] Outpatient Health 7th Floor [address] [place] [phone] Supervision of high-risk , unspecified trimester 05/10/2025 9:15 AM CDT - 05/10/2025 11:59 PM CDT Hospital Encounter [facility] - Ultrasound [address] [facility], 7th Floor, [address] [place] [address] Type 2 diabetes mellitus without complication, without long-term current use of insulin (HCC) (Primary Dx); Supervision of high-risk , unspecified trimester; Supervision of high-risk , first trimester Discharge Disposition: Discharge to home or self care 04/25/2025 Telephone [facility] [place] [address] Marcelina Lopez 04/24/2025 Telephone [facility] [place] [address] Marcelina Lopez 04/24/2025 Results Follow-Up [facility] Primary Care at [address] [phone] Irvin Sainz NP hCG, blood, quantitative 04/24/2025 Telephone [facility] [place] 1 [place] [address] Anel Jiménez RN 04/23/2025 2:36 PM CDT - 04/23/2025 11:59 PM CDT Hospital Encounter [address] [address] Positive test Discharge Disposition: Discharge to home or self care 04/23/2025 2:45 PM CDT Lab [facility] Outpatient Lab at [address] [phone] 04/23/2025 Telephone [facility] [address] [place] [address] [address] [place] [address] Edith Guzman MD 04/23/2025 Orders Only [facility] Primary Care at [address] [phone] Irvin Sainz NP Positive test (Primary Dx) 04/16/2025 Telephone [facility] Medical [facility] Primary Care at [address] [phone] Irvin Sainz NP 04/08/[address] [address] Anel Jiménez, KEREN 04/08/[address] [address] Anel Jiménez, KEREN 04/08/2025 2:00 PM CDT Office Visit [facility] Primary Care at [address] [phone] Irvin Sainz NP Type 2 diabetes mellitus with hyperglycemia, with long-term current use of insulin (HCC) (Primary Dx); Anxiety; Class 3 severe obesity due to excess calories with serious comorbidity and body mass index (BMI) of 45.0 to 49.9 in adult 04/05/2025 Telephone [facility] [address] [facility] [address] [place] [address] Yamilet Hathaway 04/04/2025 Telephone [facility] [address] [address] Anel Jiménez, KEREN 04/04/[address] [address] Anel Jiménez, KEREN 04/03/[address] [address] Anel Jiménez, KEREN 04/02/[address] [address] Anel Jiménez, KEREN 03/27/2025 Orders Only [facility] [address] [place] [address] [address] [place] [address] Tino Rose MD Mass of right axilla (Primary Dx) 03/27/2025 11:00 AM CDT Office Visit [facility] [address] [place] [address] [address] [place] [address] Tino Rose MD Mass of right axilla 03/11/2025 Telephone [facility] Primary Care at [address] [phone] Irvin Sainz NP Med Refill 03/08/2025 Results Follow-Up [facility] Primary Care at [address] [phone] Irvin Sainz NP US Axillary Right Non-Breast 03/08/2025 1:55 PM CDT - 03/08/2025 11:59 PM CDT Hospital Encounter [address] [address] Mass of right axilla Discharge Disposition: Discharge to home or self care 02/27/2025 Orders Only [facility] Primary Care at [address] [phone] Irvin Sainz NP from Last [...] 1 tablet (14 mg total) by mouth decoration checker before breakfast 90 tablet 1 01/22/20 25 025 Discontinued Active Problems Problem Noted Date Diagnosed Date Pre-existing type 2 diabetes mellitus during in first trimester 05/01/2025 Obesity complicating in [facility] r 05/01/2025 Supervision of high-risk , [facility] 05/01/2025 Overview (05/01/2025): SEROLOGIES NEEDED [] OB consult only, [] Co-management vs. [x] Full [facility] Care; [] Red Team [] Blue [...] [] MOC: [] Method of feeding: [] Body Liner (specifically which provider): [] PP Depression Discussed: [...] months. Assessment & Plan (01/21/2025 9:29 AM SEARCH STRATEGIST): Updated labs ordered, has been tolerating Rybelsus--previous A1c x 09/2024 was 9.3. Assessment & Plan (11/19/2024 9:54 AM SEARCH STRATEGIST): Tolerating Rybelsus well, will repeat labs at follow up in 2 months. Assessment & Plan (10/05/2024 9:21 AM SEARCH STRATEGIST): Previous A1c 8.1%, overdue for labs and [...] daily. Assessment & Plan (11/19/2024 9:54 AM SEARCH STRATEGIST): Much improvement on the Sertraline 50 mg, will continue. Assessment & Plan (10/05/2024 9:18 AM SEARCH STRATEGIST): Not at goal. Will switch from Lexapro to Zoloft. Education provided. Assessment & Plan (03/07/2023 2:13 PM CDT): Stable on Lexapro 20 mg. Denies SI/HI Moderate episode of recurrent major depressive d isorder 03/07/2023 Assessment & Plan (10/05/2024 9:19 AM SEARCH STRATEGIST): As above. Assessment & Plan (02/14/2024 4:06 PM CDT): Stable on Lexapro 20 mg. Denies SI/HI Assessment & Plan (03/07/2023 2:13 PM CDT): Stable on Lexapro 20 mg. Denies SI/HI Mild intermittent asthma without complication Assessment & Plan (01/21/2025 9:28 AM SEARCH STRATEGIST): Has been needing prn inhaler 2-3x/day. Discussed maintenance inhaler, will start daily Advair. Education provided. Assessment & Plan (10/05/2024 9:19 AM SEARCH STRATEGIST): Stable, uses prn inhaler approximately very infrequently. [...] recommended Assessment & Plan (01/21/2025 9:28 AM SEARCH STRATEGIST): Down 6 lbs since last visit. Healthy, low carbohydrate lifestyle and exercise for 150min/week recommended. Assessment & Plan (11/19/2024 9:54 AM SEARCH STRATEGIST): Healthy, low carbohydrate lifestyle and exercise for 150min/week recommended Assessment & Plan (10/05/2024 9:19 AM SEARCH STRATEGIST): Healthy, low carbohydrate lifestyle and exercise for [...] CDT Gender Identity Female 01/23/2024 4:53 PM SEARCH STRATEGIST Sexual Orientation Straight 01/23/2024 4: 53 PM SEARCH STRATEGIST Last Filed Vital Signs Vital Sign Reading Time Taken Comments Blood Pressure 139/88 05/10/2025 10:13 AM CDT Pulse 99 05/10/2025 10:08 AM CDT Temperature 36.8 C (98.2 F) 04/08/2025 1:38 PM CDT Respiratory Rate 28 12/10/2024 11:0 7 AM SEARCH STRATEGIST Oxygen Saturation 100% 05/10/2025 10: 08 AM [...] right axilla EGFR Routine 01/21/2025 9:27 AM SEARCH STRATEGIST Type 2 diabetes mellitus with hyperglycemia, without long-term current use of insulin (HCC) LIPID PANEL Routine 01/21/2025 9:27 AM SEARCH STRATEGIST Type 2 diabetes mellitus with hyperglycemia, without long-term current use of insulin (HCC) HEPATITIS C ANTIBODY Routine 10/05/2024 9:38 AM SEARCH STRATEGIST Encounter for hepatitis C screening test for low risk patient ALBUMIN CREATININE RATIO, URINE Routine 10/05/2024 9:38 AM SEARCH STRATEGIST Type 2 diabetes mellitus with hyperglycemia, without [...] BLOOD ORDERABLES Edited Resu lt - Final [facility] [address] [address] Department [place] [address] * (ABNORMAL) POCT hemoglobin A1c [...] by: Scott Monroe M.D. us Irvin Sainz THREAD TRIMMER IMG US PROCEDURES Final Result * eGFR (01/21/2025 9:27 AM SEARCH STRATEGIST) eGFR >90 >=60 mL/min/1. 73 m2 Comment: [...] last reviewed 2021. Blood 01/21/2025 9:27 AM SEARCH STRATEGIST 01/21/2025 9:35 PM SEARCH STRATEGIST us Irvin Sainz NP LAB BLOOD ORDERABLES Final Resul t [facility] [address] [address] Department [place] [address] * (ABNORMAL) Lipid panel (01/21/2025 9:27 AM SEARCH STRATEGIST) Cholesterol 219(H) 30 - 199 mg/dL Comment: [...] last revised on 2018. Chol/HDL ratio 4 [facility] Blood 01/21/2025 9:2 7 AM SEARCH STRATEGIST 01/21/2025 9:18 PM SEARCH STRATEGIST us Irvin Sainz NP LAB BLOOD ORDERABLES Final Resul t Performing Organization Address [facility] de Phone Number [facility] [address] [place] [address] * Hepatitis C antibody Blood (10/05/2024 9:38 AM SEARCH STRATEGIST) Hep C Ab Nonreactive Nonreactive Comment: Interpretive [...] revised on 2020. Blood 10/05/2024 9:38 AM SEARCH STRATEGIST 10/05/2024 3:07 PM SEARCH STRATEGIST us Irvin Sainz NP LAB MICROBIOLOGY - GENERAL ORDER IMER Final Result Performing Organization Address [facility] Co de Phone Number [facility] [address] [place] [address] * Albumin Creatinine Ratio, Urine (10/05/2024 9:38 AM SEARCH STRATEGIST) Albumin Ur 24.3 mg/L Comment: Interpretive Data No reference range established. Current interpretive data was last revised 2019. Creatinine Ur 207.8 mg/dL FRANCISCO J Comment: Interpretive Data No reference range established. Current interpretive data was last revised 2019. Albumin Creatinine Ratio, Ur 12 1 - 29 mg/g [facility] J YUN Urine 10/05/2024 9:38 AM SEARCH STRATEGIST 10/05/2024 3:07 PM SEARCH STRATEGIST us Irvin Sainz THREAD TRIMMER LAB URINE ORDERABLES Final Resul t [facility] [address] [address] Department [place] [address] from Last 3 Months or Most Recently Relevant to Health Maintenance Insurance [employer] Care Teams Police Detention Attendant Relationship Specialty Start Date End Date Irvin Sainz NP [address] [place] [address] PCP - General Family Medicine 03/07/23
--- OUTSIDE RECORDS SUMMARY | 2025-05-11 20:04 | XMS_ITS | Encounter Summary ---
Author Organization [facility] Healthcare Address [address] [place] [address] Care Team Providers Care Computer Repair Instructor Name Role Phone Slime Dillon NP Primary Care Provider [phone] Reason for Referral * Diagnostic Imaging (Routine) - Pending Review Specialty Diagnoses / Procedures Referred By Jessica antonio Referred To Contact Diagnoses Type 2 diabetes mellitus without complication, without long-term current use of insulin (HCC) Supervision of high-risk , first trimester Procedures US Ob Limited Patricia Jones MD [address] [address] Phone: tel: fax: [facility] (All Locations) Referral ID Status Reason Start Date Expiration Date V isits Requested Visits Authorized [id number] Pending Review 05/10/2025 06/09/2026 1 1 * Diagnostic Imaging (Routine) - Closed Specialty Diagnoses / Procedures Referred By Jessica antonio Referred To Contact Diagnoses Supervision of high-risk , unspecified trimester Procedures US Ob Limited Patricia Jones MD [address] [address] Phone: tel: fax: [facility] (All Locations) Referral ID Status Reason Start Date Expiration Date Visits Re quested Visits Authorized [id number] Closed 04/25/2025 05/25/2026 1 1 Reason for Visit * Diagnostic Imaging (Routine) - Closed Specialty Diagnoses / Procedures Referred By Contac t Referred To Contact Diagnoses Supervision of high-risk , unspecified trimester Procedures US Ob Limited Patricia Jones MD [address] [facility] [address] [address] [place] [address] Phone: tel: fax: [facility] (All Locations) Referral ID Status Reason Start Date Expiration Date Visits Re quested Visits Authorized [id number] Closed 04/25/2025 05/25/2026 1 1 Encounter Details Date Type Department Care Team (Latest Contact Info) Description 05/10/2025 9:15 AM CDT - 05/10/2025 11:59 PM CDT Hospital Encounter [facility] - Ul[facility]ound [address] [facility], 7th Floor, [address] [facility] [place] [address] Type 2 diabetes mellitus without [...] CDT Gender Identity Female 01/23/2024 4:53 PM EMERGENCY DEPARTMENT Sexual Orientation Straight 01/23/2024 4: 53 PM EMERGENCY DEPARTMENT documented as of this encounter Functional Status [...] trimester documented in this encounter Care Teams Computer Repair Instructor Relationship Specialty Start Date End Date Slime Dillon NP [address] [facility] [address] [place] [address] PCP - General Family Medicine 03/07/23 documented as of this encounter
--- OUTSIDE RECORDS SUMMARY | 2025-05-11 20:04 | XMS_ITS | Encounter Summary ---
Author Organization [facility] Healthcare Address [address] [place] [address] Care Team Providers Care Chicken Sexer Name Role Phone Slime Dillon NP Primary Care Provider [phone] Encounter Details Date Type Department Care Team (Latest Contact Info) Description 04/24/2025 Results Follow-Up [facility] Medical Group Primary Care at [address] [address] Slime Dillon NP [address] [place] [address] [address] [place] [address] hCG, blood, quantitative Social History [...] CDT Gender Identity Female 01/23/2024 4:53 PM AMMONIA NITRATE OPERATOR Sexual Orientation Straight 01/23/2024 4: 53 PM AMMONIA NITRATE OPERATOR documented as of this encounter Plan of Treatment Not on file documented as of this encounter Visit Diagnoses Not on filedocumented in this encounter Care Teams Chicken Sexer Relationship Specialty Start Date End Date Slime Dillon NP [address] [address] PCP - General Family Medicine 03/07/23 documented as of this encounter
--- OUTSIDE RECORDS SUMMARY | 2025-05-11 20:04 | XMS_ITS | Clinical Summary ---
Author Organization [facility] Address [address] [facility] [address] [place] [address] Phone Care Team Providers Care Outboard Motorboat Rigger Name Role Phone Irvin Sainz NP Primary Care Provider [phone] Allergies Active Allergy Reactions Criticality Noted Date [...] 1 tablet (14 mg total) by mouth ground water technician before breakfast 90 tablet 1 01/22/20 025 [...] [] MOC: [] Method of feeding: [] Yard Laborer (specifically which provider): [] PP Depression Discussed: [...] months. Assessment & Plan (01/21/2025 9:29 AM TIMBER FALLER): Updated labs ordered, has been tolerating Rybelsus--previous A1c x 09/2024 was 9.3. Assessment & Plan (11/19/2024 9:54 AM TIMBER FALLER): Tolerating Rybelsus well, will repeat labs at follow up in 2 months. Assessment & Plan (10/05/2024 9:21 AM TIMBER FALLER): Previous A1c 8.1%, overdue for labs and [...] daily. Assessment & Plan (11/19/2024 9:54 AM TIMBER FALLER): Much improvement on the Sertraline 50 mg, will continue. Assessment & Plan (10/05/2024 9:18 AM TIMBER FALLER): Not at goal. Will switch from Lexapro to Zoloft. Education provided. Assessment & Plan (03/07/2023 2:13 PM CDT): Stable on Lexapro 20 mg. Denies SI/HI Moderate episode of recurrent major depressive d isorder 03/07/2023 Assessment & Plan (10/05/2024 9:19 AM TIMBER FALLER): As above. Assessment & Plan (02/14/2024 4:06 PM CDT): Stable on Lexapro 20 mg. Denies SI/HI Assessment & Plan (03/07/2023 2:13 PM CDT): Stable on Lexapro 20 mg. Denies SI/HI Mild intermittent asthma without complication Assessment & Plan (01/21/2025 9:28 AM TIMBER FALLER): Has been needing prn inhaler 2-3x/day. Discussed maintenance inhaler, will start daily Advair. Education provided. Assessment & Plan (10/05/2024 9:19 AM TIMBER FALLER): Stable, uses prn inhaler approximately very infrequently. [...] recommended Assessment & Plan (01/21/2025 9:28 AM TIMBER FALLER): Down 6 lbs since last visit. Healthy, low carbohydrate lifestyle and exercise for 150min/week recommended. Assessment & Plan (11/19/2024 9:54 AM TIMBER FALLER): Healthy, low carbohydrate lifestyle and exercise for 150min/week recommended Assessment & Plan (10/05/2024 9:19 AM TIMBER FALLER): Healthy, low carbohydrate lifestyle and exercise for [...] Description 05/10/2025 9:45 AM CDT Office Visit [facility] Maternal- Medicine [address] [facility] 7th Floor [address] [place] [phone] Supervision of high-risk , unspecified trimester 05/10/2025 9:15 AM CDT - 05/10/2025 11:59 PM CDT Hospital Encounter [facility] Outpatient [facility] - Ultrasound [address] [facility], 7th Floor, [address] [place], [place] [id number] Type 2 diabetes mellitus without complication, without long-term current use of insulin (HCC) (Primary Dx); Supervision of high-risk , unspecified trimester; Supervision of high-risk , first trimester Discharge Disposition: Discharge to home or self care 04/25/2025 Telephone [facility] Obstetrics and Gynecology [address] [place] [address] Trell Lopeza 04/24/2025 Telephone [facility] Obstetrics and Gynecology [facility] [place] [address] LopezMarcelina 04/24/2025 Results Follow-Up [facility] Medical Group Primary Care at [address] [address] Irvin Sainz NP hCG, blood, quantitative 04/24/2025 Telephone [facility] 1 [place] [address] Anel Jiménez RN 04/23/2025 2:45 PM CDT Lab [facility] Outpatient Lab at [address] [address] 04/23/2025 2:36 PM CDT - 04/23/2025 11:59 PM CDT Hospital Encounter [address] [address] Positive test Discharge Disposition: Discharge to home or self care 04/23/2025 Telephone [facility] [address] [facility] [address] [place] [address] Edith Guzman MD 04/23/2025 Orders Only [facility] Medical Group Primary Care at [address] [address] Irvin Sainz NP Positive test (Primary Dx) 04/16/2025 Telephone [facility] Primary Care at [address] [address] Irvin Sainz NP 04/08/2025 2:00 PM CDT Office Visit [facility] Medical Group Primary Care at [address] [address] Irvin Sainz NP Type 2 diabetes mellitus with hyperglycemia, with long-term current use of insulin (HCC) (Primary Dx); Anxiety; Class 3 severe obesity due to excess calories with serious comorbidity and body mass index (BMI) of 45.0 to 49.9 in adult 04/08/[address] [address] Anel Jiménez, RN 04/08/2025 Telephone [facility] [address] [address] Anel Jiménez, RN 04/05/2025 Telephone [place] [address] [place] [address] Yamilet Hathaway 04/04/[address] [address] Anel Jiménez, RN 04/04/[address] [address] Anel Jiménez, RN 04/03/[address] [address] Anel Jiménez, RN 04/02/[address] [address] Anel Jiménez, KEREN 03/27/2025 11:00 AM CDT Office Visit [address] [address] Tino Rose MD Mass of right axilla 03/27/2025 Orders Only [address] [address] Tino Rose MD Mass of right axilla (Primary Dx) 03/11/2025 Telephone [facility] Medical Group Primary Care at [address] [phone] Irvin Sainz NP Med Refill 03/08/2025 1:55 PM CDT - 03/08/2025 11:59 PM CDT Hospital Encounter [address] [address] Mass of right axilla Discharge Disposition: Discharge to home or self care 03/08/2025 Results Follow-Up [facility] Medical Group Primary Care at [address] [phone] Irvin Sainz NP US Axillary Right Non-Breast 02/27/2025 Orders Only [facility] Medical Group Primary Care at [address] [address] Irvin Sainz NP from Last [...] CDT Gender Identity Female 01/23/2024 4:53 PM TIMBER FALLER Sexual Orientation Straight 01/23/2024 4: 53 PM TIMBER FALLER Obstetrics History Para Term AB IAB SAB [...] PCP records for DM management are in [facility]. Most recent visit was 04/08/25. Last Filed Vital Signs Vital Sign Reading Time Taken Comments Blood Pressure 139/88 05/10/2025 10:13 AM CDT Pulse 99 05/10/2025 10:08 AM CDT Temperature 36.8 C (98.2 F) 04/08/2025 1:38 PM CDT Respiratory Rate 28 12/10/2024 11:0 7 AM TIMBER FALLER Oxygen Saturation 100% 05/10/2025 10: 08 AM [...] right axilla EGFR Routine 01/21/2025 9:27 AM TIMBER FALLER Type 2 diabetes mellitus with hyperglycemia, without long-term current use of insulin (HCC) LIPID PANEL Routine 01/21/2025 9:27 AM TIMBER FALLER Type 2 diabetes mellitus with hyperglycemia, without long-term current use of insulin (HCC) HEPATITIS C ANTIBODY Routine 10/05/2024 9:38 AM TIMBER FALLER Encounter for hepatitis C screening test for low risk patient ALBUMIN CREATININE RATIO, URINE Routine 10/05/2024 9:38 AM TIMBER FALLER Type 2 diabetes mellitus with hyperglycemia, without [...] 04/23/2025 8:08 PM CDT us Irvin Sainz ENROLLMENT MANAGEMENT MANAGER LAB BLOOD ORDERABLES Edited Resu lt - Final [place] [address] [facility] [place] [address] * (ABNORMAL) POCT hemoglobin A1c (04/08/2025 1:56 [...] by: Scott Monroe M.D. us Irvin Sainz ENROLLMENT MANAGEMENT MANAGER IMG US PROCEDURES Final Result * eGFR (01/21/2025 9:27 AM TIMBER FALLER) eGFR >90 >=60 mL/min/1. 73 m2 Comment: [...] last reviewed 2021. Blood 01/21/2025 9:27 AM TIMBER FALLER 01/21/2025 9:35 PM TIMBER FALLER us Irvin Sainz NP LAB BLOOD ORDERABLES Final Resul t [place] [address] [facility] [place] [address] * (ABNORMAL) Lipid panel (01/21/2025 9:27 AM TIMBER FALLER) Cholesterol 219(H) 30 - 199 mg/dL Comment: [...] FRANCISCO J YUN Blood 01/21/2025 9:27 AM TIMBER FALLER 01/21/2025 9:18 PM TIMBER FALLER Irvin Sainz ENROLLMENT MANAGEMENT MANAGER LAB BLOOD ORDERABLES Final Resul t [place] [address] [place] [address] * Hepatitis C antibody Blood (10/05/2024 9:38 AM TIMBER FALLER) Pathologist [facility] Hep C Ab Nonreactive Nonreactive Comment: Interpretive [...] revised on 2020. Blood 10/05/2024 9:38 AM TIMBER FALLER 10/05/2024 3:07 PM TIMBER FALLER us Irvin Sainz NP LAB MICROBIOLOGY - GENERAL ORDER IMER Final Result Performing Organization Address [facility] de Phone Number FRANCISCO J YUN [address] [address] [place] [address] * Albumin Creatinine Ratio, Urine (10/05/2024 9:38 AM TIMBER FALLER) Pathologist [facility] Albumin Ur 24.3 mg/L Comment: Interpretive Data No reference range established. Current interpretive data was last revised 2019. Creatinine Ur 207.8 mg/dL [facility] Comment: Interpretive Data No reference range established. Current interpretive data was last revised 2019. Albumin Creatinine Ratio, Ur 12 1 - 29 mg/g [facility] Urine 10/05/2024 9:38 AM TIMBER FALLER 10/05/2024 3:07 PM TIMBER FALLER us Irvin Sainz NP LAB URINE ORDERABLES Final Resul t Performing Organization Address [facility] de Phone Number FRANCISCO J YUN [address] [address] [place] [address] from Last 3 Months or Most Recently Relevant to Health Maintenance Insurance [employer] Care Teams Outboard Motorboat Rigger Relationship Specialty Start Date End Date Irvin Sainz NP [address] [facility] [address] [place] [address] PCP - General Family Medicine 03/07/23
--- OUTSIDE RECORDS SUMMARY | 2025-05-11 20:04 | XMS_ITS | Encounter Summary ---
Author Organization [facility] Healthcare Address [address] [place] [address] Care Team Providers Care Stunner And Shackler Name Role Phone Slime Dillon NP Primary Care Provider [phone] Encounter Details Date Type Department Care Team (Late st Contact Info) Description 02/05/2025 Telephone [facility] [address] [place] [address] Anel Jiménez RN Social History Tobacco Use [...] CDT Gender Identity Female 01/23/2024 4:53 PM BUN ICER Sexual Orientation Straight 01/23/2024 4: 53 PM BUN ICER documented as of this encounter Plan of Treatment Not on file documented as of this encounter Visit Diagnoses Not on filedocumented in this encounter Care Teams Stunner And Shackler Relationship Specialty Start Date End Date Slime Dillon NP [address] [facility] [address] [place], [place] [id number] PCP - General Family Medicine 03/07/23 documented as of this encounter
[2025-05-11 20:06] VITALS: BP 157/99; PULSE 103; RESP 16; TEMP 36.7; O2SAT 100
--- NOTE | 2025-05-11 20:36 | S_PTH ---
PATIENT: Eneida Borja LOC: [facility]#:[id number] AGE/SX: 30/F ROOM: RE05/11/[address]: Chaparrita Melton, [facility] : 1995 BED: DIS: 05/11/2025 SPEC #: [id number] RECD: 05/13/25 08:10 STATUS: NEFTALI REMao #: [id number] YAZMIN: 05/11/25 20:[address]: Chaparrita Melton DEPT: [facility] Surgical RECD BY: Alea Saleem ENTERED: 05/13/25 08:10 SP TYPE: Surgical OTHR DR: Slime Dillon, MINILAB OPERATOR Tissues: A - Products of Conception Procedures: Hematoxylin and Eosin Stain Gross and Microscopic Level 4
--- NOTE | 2025-05-11 20:43 | ED.PREGNANCY ---
HPI - General Chief complaint: FRONT DESK MONITOR Stated complaint: 6 weeks preg, vaginal bleeding Time Seen by Provider: 05/11/25 20:06 Source: patient Mode of arrival: ambulatory Limitations: no limitations History of Present Illness HPI Narrative: This is a 30 year old female that presents to the ER for vaginal bleeding in . She was seen earlier today for this. Had increased bleeding tonight and passed some tissue which prompted her to be seen. Related Data Allergies Allergy/AdvReac Type Severity Reaction Status Date / Time Penicillins Allergy Mild Unknown Verified 05/11/25 15:31 Review of Systems Review of Systems: All systems reviewed & are unremarkable except as noted in HPI and below PMFSH Past Medical History Medical History (Updated 05/11/25 @ 21:39 by Chaparrita Melton PA-C) History of diabetes mellitus Exam Narrative: GENERAL: Well-appearing, well-nourished, and in no acute distress. HEAD: Normocephalic, atraumatic. EYES: EOMI. CHEST: Clear to auscultation. No respiratory distress. No wheezes rales or rhonchi HEART: Regular rate and rhythm. No murmur heard. Normal peripheral pulses. ABDOMEN: Soft, nontender, nondistended, normal active bowel sounds. EXTREMITIES: Normal range of motion. No edema. SKIN: Warm, dry, no rash. NEURO: No focal deficits. Alert and oriented x3. PSYCH: Normal mood and affect PELVIC: Cervix is open with small amount of tissue passing, small amount of dark red blood in the vaginal vault Course Vital Signs Vital signs: Vital Signs Temperature 98.1 F 05/11/25 20:06 Pulse Rate 103 H 05/11/25 20:06 Respiratory Rate 16 05/11/25 20:06 Blood Pressure 157/99 H 05/11/25 20:06 Pulse Oximetry 100 05/11/25 20:06 Oxygen Delivery Room Air 05/11/25 20:06 Temperature 98.1 F 05/11/25 20:06 Pulse Rate 103 H 05/11/25 20:06 Respiratory Rate 16 05/11/25 20:06 Blood Pressure 157/99 H 05/11/25 20:06 Pulse Oximetry 100 05/11/25 20:06 Oxygen Delivery Room Air 05/11/25 20:06 MDM - OB/Uterine Contractions MDM Narrative Medical decision making narrative: Patient presents to the ER for increasing vaginal bleeding. I saw her earlier today for bleeding in early . Had an ultrasound yesterday at her OB's office that showed intrauterine , measuring 6 weeks with pole, but no heart tones. She started to experience increasing bleeding and passed some tissue which prompted her to return. Patient is O+. No concerning amount of bleeding on exam. Tissue will be sent for pathology. She does have an order for repeat beta-hCG on Tuesday. Instructed to have close follow-up with her OB. Given warnings to return Differential Diagnosis Differential diagnosis: Likely other (miscarriage, threatened miscarriage) Critical Care Time Critical Care Time Critical Care Time: No Discharge Plan Discharge Clinical Impression: First-trimester bleeding Patient Disposition: Home Condition: Stable Instructions: Threatened Miscarriage (ED) Patient Language: Dominican Prescriptions: No Action ibuprofen 400 mg tablet 400 mg PO TID PRN (Reason: pain) Qty: 14 0RF hydrocodone-acetaminophen 5-325 mg tablet 1 tablet PO Q8H PRN (Reason: pain) Qty: 10 0RF Follow-up/Referrals: Santana,Slime Marroquin APRN [Primary Care Provider] - Stand Alone Forms: Work/School Release IP
--- NOTE | 2025-05-11 21:20 | PC.NURSE ---
patient left prior to discharge instructions/ miscarriage resources/ and share pamphlets. Chris Chaparrita aware of patient elopement.
== END 2025-05-11 21:55 | disposition home or self-care (01) ==
PROVIDERS: Emergency Provider Physician Assistant; PCP Nurse Practitioner Family
DX: O20.9 Hemorrhage in early pregnancy, unspecified (principal); O24.111 Pre-existing type 2 diabetes mellitus, in pregnancy, first trimester; Z3A.01 Less than 8 weeks gestation of pregnancy
CPT/HCPCS: 88305; 99283